=== PATIENT | male | born 1960 | race Caucasian/White ===

== ENCOUNTER 2017-02-08 18:10 | Observation (INO) | payer OTHER ==
[~2017-02-08] VITALS: Ht 185.4 cm; Wt 150.0 kg
[~2017-02-08 18:10] MED LIST: ADVAI250I INH; ALBU8I INH; AMLO5 PO; BACT800T5 PO; CEPH500T PO; DUONI INH; FURO10S PO; LEVEMIR SQ; METO25 PO; NEBUMIS6 INH; SUBO8MIS SL; Z.0.OXYGENDME NC
[2017-02-08 18:12] VITALS: BP 142/80; PULSE 78; RESP 20; TEMP 98.2; O2SAT 98
--- NOTE | 2017-02-08 18:21 | PD ---
Physical Exam Date Seen by Provider: Feb 08, 2017 Time Seen by Provider: 18:14 Narrative 56 YOWM C/O NAUSEA AND DIFFICULTY SWALLOWING . SEEN BY PMD LAST WEEK GIVEN WATER PILL VSS. AWAITING BED PLACEMENT Data Data Last Documented VS Vital Signs Date Time Temp Pulse Resp B/P Pulse Ox O2 Delivery O2 Flow Rate FiO2 02/08/17 18:12 98.2 78 20 142/80 98 MDM Medical Record Reviewed: Yes Supervised Visit with SIS: Yes Daniel Torre Feb 08, 2017 18:21
[2017-02-08] MEDS ORDERED: SODIUM CHLOR 0.9% 1000 ML INJ 1,000 ML IV SCH (20:09)
[2017-02-08] MEDS ORDERED: ONDANSETRON HCL 4 MG/2 ML VIAL IVP ONE (20:15)
[2017-02-08] MEDS ORDERED: FENO160T PO (20:29)
[2017-02-08] MEDS ORDERED: GLIP10TA6 PO (20:29)
[2017-02-08] MEDS ORDERED: ALBUAER3 INH (20:29)
[2017-02-08] MEDS ORDERED: FURO20TA PO (20:29)
[2017-02-08] MEDS ORDERED: LEVEMIR SQ (20:29)
[2017-02-08] MEDS ORDERED: LISI-515 PO (20:29)
[2017-02-08] MEDS ORDERED: METH10TA PO (20:29)
[2017-02-08 20:44] LABS: AUTOMATED NEUTROPHIL # 9.1 TH/MM3 (1.8-7.7); BASOPHIL # 0.1 TH/MM3 (0-0.2); BASOPHIL % 0.4 % (0.0-2.0); EOSINOPHIL # 0.1 TH/MM3 (0-0.4); EOSINOPHIL % 0.8 % (0.0-4.0); HEMATOCRIT 45.4 % (39.0-51.0); HEMO FLAGS DIFF FINAL; LYMPH % 21.4 % (9.0-44.0); LYMPHOCYTE # 2.7 TH/MM3 (1.0-4.8); MEAN CELL VOLUME 83.5 FL (80.0-100.0); MEAN CORPUSCULAR HEMOGLOBIN 26.9 PG (27.0-34.0); MEAN CORPUSCULAR HGB CONC 32.2 % (32.0-36.0); MONO % 5.9 % (0.0-8.0); NEUT % 71.5 % (16.0-70.0); PLATELET COUNT 253 TH/MM3 (150-450); RED BLOOD COUNT 5.44 MIL/MM3 (4.50-5.90); RED CELL DISTRIBUTION WIDTH 15.6 % (11.6-17.2); WHITE BLOOD COUNT 12.7 TH/MM3 (4.0-11.0)
[2017-02-08 20:59] LABS: ANION GAP 10 MEQ/L (5-15); AST (GOT) 33 U/L (15-37); BICARBONATE 26.4 MEQ/L (21.0-32.0); BLOOD UREA NITROGEN 26 MG/DL (7-18); CHLORIDE 99 MEQ/L (98-107); GLOMERULAR FILTRATION RATE 51 ML/MIN (>89); POTASSIUM 4.5 MEQ/L (3.5-5.1); SODIUM (NA) 135 MEQ/L (136-145)
[2017-02-08 21:02] LABS: ALKALINE PHOSPHATASE 71 U/L (45-117); ALT (GPT) 34 U/L (12-78); TOTAL BILIRUBIN ADULT 0.5 MG/DL (0.2-1.0)
--- NOTE | 2017-02-08 21:21 | PD ---
HPI Chief Complaint: GI Complaint Time Seen by Provider: 21:17 Travel History International Travel<30 days: No Contact w/Intl Traveler<30days: No Traveled to known affect area: No History of Present Illness HPI 56-year-old male that presents to the ED for evaluation of inability to eat and drink for the past 5 days. Per patient although symptoms started on Tuesday. Per patient she's not been able to eat solids as he feels like it gets stuck and wants to come back up. Per patient she's also been having issues with liquids for the past couple of days. Per patient he seems to be progressively getting worse. He states that he has like a pressure pain in his epigastric area. Per patient he has never had anything like this before. He does mention to me that he went to see his doctor on before symptoms started and he was prescribed a new prescription for Lasix for swelling on the lower legs. The patient she's not sure if this is related to that. He denies any shortness of breath. Denies any history of heart disease. He does have a history of obesity, diabetes and hypertension. He also has a history of chronic wounds to his legs for which she follows with primary care doctor. He states that the pain is 6 out of 10. Nothing seems to make it better or worse. Per patient she is able to keep some fluids down but he feels like they're agreeable to come back up. He states that he had normal bowel movement yesterday. No bleeding. No lower abdominal pain. No urinary or bowel movement issues. No fevers chills or sweats. No cough or runny nose. No history of obstructions in the past. PFSH Past Medical History Cancer: No Cardiovascular Problems: No High Cholesterol: No Congestive Heart Failure: No Cerebrovascular Accident: No Diabetes: Yes Patient Takes Glucophage: Yes Diminished Hearing: No Endocrine: Yes Genitourinary: No Immune Disorder: No Musculoskeletal: Yes Neurologic: No Psychiatric: No Reproductive: No Respiratory: No Immunizations Current: Yes Seizures: No Past Surgical History Other Surgery: Yes Social History Alcohol Use: No Tobacco Use: No Substance Use: No Allergies-Medications (Allergen,Severity, Reaction): Coded Allergies: Penicillin (Verified Allergy, Severe, Anaphylaxis, 02/08/17) Reported Meds & Prescriptions Reported Meds & Active Scripts Active Bactrim DS (Sulfamethoxazole-Trimethoprim) 800-160 Mg Tab 1 Tab PO BID Reported Proair Hfa 8.5 GM Inh (Albuterol Sulfate) 90 Mcg/Act Aer 2 Puff INH Q4-6H PRN 108 mcg/actuation Levemir Inj (Insulin Detemir) 1,000 unit/ 10 ML Vial 65 Units SQ HS Do not mix with any other Insulin. Lisinopril 20 Mg Tab 25 Mg PO DAILY Fenofibrate 160 Mg Tab 160 Mg PO DAILY Methadone (Methadone HCl) 10 Mg Tab 10 Mg PO DAILY Glipizide 10 Mg Tab 10 Mg PO BIDAC Take 30 minutes before a meal Furosemide 20 Mg Tab 20 Mg PO DAILY Review of Systems Except as stated in HPI: all other systems reviewed are Neg Physical Exam Narrative GENERAL: SKIN: Warm and dry. HEAD: Atraumatic. Normocephalic. EYES: Pupils equal and round 4 mm reactive to light and accommodation. No scleral icterus. No injection or drainage. ENT: No nasal bleeding or discharge. Mucous membranes pink and moist. Tongue is midline. No uvula deviation. NECK: Trachea midline. No JVD. CARDIOVASCULAR: Regular rate and rhythm. No murmurs, S3, S4. RESPIRATORY: No accessory muscle use. Clear to auscultation. Breath sounds equal bilaterally. GASTROINTESTINAL: Abdomen soft, non-tender, nondistended. Hepatic and splenic margins not palpable. MUSCULOSKELETAL: Extremities without clubbing, cyanosis, or edema. No obvious deformities. Full range of motion of the upper and lower extremities bilaterally. 2+ pulses bilaterally. NEUROLOGICAL: Awake and alert. No obvious cranial nerve deficits. Motor grossly within normal limits. Five out of 5 muscle strength in the arms and legs. Normal speech. PSYCHIATRIC: Appropriate mood and affect; insight and judgment normal. Data Data Last Documented VS Vital Signs Date Time Temp Pulse Resp B/P Pulse Ox O2 Delivery O2 Flow Rate FiO2 02/08/17 18:12 98.2 78 20 142/80 98 Orders Complete Blood Count With Diff (02/08/17 20:09) Comprehensive Metabolic Panel (02/08/17 20:09) Lipase (02/08/17 20:09) Lactic Acid (02/08/17 20:09) Urinalysis - C+S If Indicated (02/08/17 20:09) Ct Abd/Pel W Iv Contrast(Rout) (02/08/17 20:09) Iv Access Insert/Monitor (02/08/17 20:09) Ondansetron Inj (Zofran Inj) (02/08/17 20:15) Sodium Chlor 0.9% 1000 Ml Inj (Ns 1000 M (02/08/17 20:09) Barium Swallow (02/08/17 ) Electrocardiogram (02/08/17 ) Troponin I (02/08/17 21:16) Famotidine Inj (Pepcid Inj) (02/08/17 21:30) Iohexol 350 Inj (Omnipaque 350 Inj) (02/08/17 22:35) Labs Laboratory Tests Test 02/08/17 20:20 White Blood Count 12.7 TH/MM3 Red Blood Count 5.44 MIL/MM3 Hemoglobin 14.6 GM/DL Hematocrit 45.4 % Mean Corpuscular Volume 83.5 FL Mean Corpuscular Hemoglobin 26.9 PG Mean Corpuscular Hemoglobin 32.2 % Concent Red Cell Distribution Width 15.6 % Platelet Count 253 TH/MM3 Mean Platelet Volume 8.5 FL Neutrophils (%) (Auto) 71.5 % Lymphocytes (%) (Auto) 21.4 % Monocytes (%) (Auto) 5.9 % Eosinophils (%) (Auto) 0.8 % Basophils (%) (Auto) 0.4 % Neutrophils # (Auto) 9.1 TH/MM3 Lymphocytes # (Auto) 2.7 TH/MM3 Monocytes # (Auto) 0.7 TH/MM3 Eosinophils # (Auto) 0.1 TH/MM3 Basophils # (Auto) 0.1 TH/MM3 CBC Comment DIFF FINAL Differential Comment Sodium Level 135 MEQ/L Potassium Level 4.5 MEQ/L Chloride Level 99 MEQ/L Carbon Dioxide Level 26.4 MEQ/L Anion Gap 10 MEQ/L Blood Urea Nitrogen 26 MG/DL Creatinine 1.45 MG/DL Estimat Glomerular Filtration 51 ML/MIN Rate Random Glucose 182 MG/DL Lactic Acid Level 1.4 mmol/L Calcium Level 9.5 MG/DL Total Bilirubin 0.5 MG/DL Aspartate Amino Transf 33 U/L (AST/SGOT) Alanine Aminotransferase 34 U/L (ALT/SGPT) Alkaline Phosphatase 71 U/L Troponin I LESS THAN 0.02 NG/ML Total Protein 8.5 GM/DL Albumin 3.7 GM/DL Lipase 393 U/L [facility] Medical Decision Making Medical Screen Exam Complete: Yes Emergency Medical Condition: Yes Medical Record Reviewed: Yes Interpretation(s) CBC & BMP Diagram 02/08/17 20:20 LFTs and lipase WNL Differential Diagnosis Epigastric pain versus GERD versus obstruction versus esophagitis versus stricture versus cardiac chest pain versus ACS Narrative Course 56-year-old male that presents to the ED for evaluation of inability to swallow. Patient was properly examined and was found to have signs and symptoms which appear to be consistent with dysphagia versus obstruction versus epigastric pain. At this time I recommend labs and imaging. Patient is agreeable plan. Patient was started on IV fluids. Given Pepcid. Labs and imaging still pending. Case signed out to my attending pending imaging results. Imtiaz Rios Feb 08, 2017 21:21
--- NOTE | 2017-02-08 21:26 | RADRPT ---
EXAM DATE/TIME: 02/08/2017 20:34 [facility] COMPARISON: No previous studies available for comparison. INDICATIONS : Dysphagia. FLUORO TIME: 0.5 minutes IMAGE COUNT: 9 CONTRAST: 1. Liquid E-Z Paque Barium Sulfate (60% w/v, 41% w.w) MEDICAL HISTORY : Hypertension. Chronic obstructive pulmonary disease. SURGICAL HISTORY : Lumbar fusion. ENCOUNTER: Initial ACUITY: 4 - 6 days PAIN SCORE: 0/10 LOCATION: esophagus. FINDINGS: Examination was performed in a semierect position with the patient drinking thin barium. The patient was unable to turn for lateral projection and the examination was performed only in the frontal view . The patient initiates swallowing normally. There is rapid transit of the barium through the esoph mar. Esophageal contour and diameter is normal. No evidence of ulceration or mass. CONCLUSION: Negative barium swallow. No evidence of obstruction, aspiration, or ulceration. Gary Smalls MD on February 08, 2017 at 21:23 Board Certified Radiologist. This report was verified electronically.
[2017-02-08] MEDS: FAMOTIDINE 20 MG/2 ML VIAL IV PUSH SCH (21:49)
[2017-02-08] MEDS ORDERED: IOHEXOL 350 MG/ML 10 ML VIAL (for RAD DIAG) IV ONE (22:35)
[2017-02-08 22:47] VITALS: BP 158/95; PULSE 85; RESP 18; O2SAT 97
--- NOTE | 2017-02-08 23:09 | RADRPT ---
EXAM DATE/TIME: 02/08/2017 22:33 [facility] COMPARISON: No previous studies available for comparison. INDICATIONS : Nausea and difficulty swallowing. IV CONTRAST: 100 cc Omnipaque 350 (iohexol) IV ORAL CONTRAST: No oral contrast ingested. RADIATION DOSE: 34.37 CTDIvol (mGy) MEDICAL HISTORY : Hypertension. Chronic obstructive pulmonary disease. Deep venous thrombosis. SURGICAL HISTORY : Lumbar surgery. ENCOUNTER: Initial ACUITY: 1 day PAIN SCALE: 5/10 LOCATION: Bilateral lower quadrant TECHNIQUE: Volumetric scanning of the abdomen and pelvis was performed. Using automated exposure control and ad justment of the mA and/or kV according to patient size, radiation dose was kept as low as reasonably achievable to obtain optimal diagnostic quality images. FINDINGS: Streak artifact from the barium relating to the patient's barium swallow. LOWER LUNGS: The visualized lower lungs are clear. LIVER: Homogeneous low density without lesion. There is no dilation of the biliary tree. No calcified gall stones. SPLEEN: Normal size without lesion. PANCREAS: Within normal limits. KIDNEYS: Normal in size and shape. There is no mass or hydronephrosis. 1 mm nonobstructing right renal stone. ADRENAL GLANDS: Within normal limits. VASCULAR: There is no aortic aneurysm. BOWEL/MESENTERY: Barium within the small bowel generates streak artifact. The remaining bowel loops are normal in jax jeff. No free air or free fluid. ABDOMINAL WALL: Small umbilical hernia containing fat. RETROPERITONEUM: There is no lymphadenopathy. BLADDER: No wall thickening or mass. REPRODUCTIVE: Within normal limits. INGUINAL: There is no lymphadenopathy or hernia. MUSCULOSKELETAL: Postsurgical changes involving a degenerative lumbar spine. CONCLUSION: 1. No acute abnormality. 2. Hepatic steatosis. 3. 1 mm nonobstructing right renal stone. Gary Hartman Jr., MD on February 08, 2017 at 23:03 Board Certified Radiologist. This report was verified electronically.
[2017-02-09] VITALS (7 sets, daily range): BP systolic 127–172; BP diastolic 68–90; PULSE 79–90; RESP 16–20; TEMP 96.3–98.7; O2SAT 95–98
[2017-02-09] MEDS ORDERED: METOCLOPRAMIDE INJ 10 MG in SODIUM CHLORIDE 0.9% INJ 50 ML IV ONE (00:15)
--- NOTE | 2017-02-09 02:05 | PD ---
Physical Exam Narrative I, Dr. Humphrey, have reviewed the advance practice practitioner's documentation and am in agreement, met with the patient face to face, made the diagnosis, and the medical decision making was done by me. *My assessment and Findings: Patient is a 56 year old male who comes in because he says he is unable to swallow solids and is vomiting liquids. Patient has history of uncontrolled sugars. Exam shows patient is uncomfortable, unable to drink fluids. No abdominal tenderness. Data Data Last Documented VS Vital Signs Date Time Temp Pulse Resp B/P Pulse Ox O2 Delivery O2 Flow Rate FiO2 02/08/17 22:47 85 18 158/95 97 Room Air 02/08/17 18:12 98.2 Orders Complete Blood Count With Diff (02/08/17 20:09) Comprehensive Metabolic Panel (02/08/17 20:09) Lipase (02/08/17 20:09) Lactic Acid (02/08/17 20:09) Urinalysis - C+S If Indicated (02/08/17 20:09) Ct Abd/Pel W Iv Contrast(Rout) (02/08/17 20:09) Iv Access Insert/Monitor (02/08/17 20:09) Ondansetron Inj (Zofran Inj) (02/08/17 20:15) Sodium Chlor 0.9% 1000 Ml Inj (Ns 1000 M (02/08/17 20:09) Barium Swallow (02/08/17 ) Electrocardiogram (02/08/17 ) Troponin I (02/08/17 21:16) Famotidine Inj (Pepcid Inj) (02/08/17 21:30) Iohexol 350 Inj (Omnipaque 350 Inj) (02/08/17 22:35) Metoclopramide Inj (Reglan Inj) (02/09/17 00:15) Admit Order (Ed Use Only) (02/09/17 ) Labs Laboratory Tests Test 02/08/17 02/09/17 20:20 00:13 White Blood Count 12.7 TH/MM3 Red Blood Count 5.44 MIL/MM3 Hemoglobin 14.6 GM/DL Hematocrit 45.4 % Mean Corpuscular Volume 83.5 FL Mean Corpuscular Hemoglobin 26.9 PG Mean Corpuscular Hemoglobin 32.2 % Concent Red Cell Distribution Width 15.6 % Platelet Count 253 TH/MM3 Mean Platelet Volume 8.5 FL Neutrophils (%) (Auto) 71.5 % Lymphocytes (%) (Auto) 21.4 % Monocytes (%) (Auto) 5.9 % Eosinophils (%) (Auto) 0.8 % Basophils (%) (Auto) 0.4 % Neutrophils # (Auto) 9.1 TH/MM3 Lymphocytes # (Auto) 2.7 TH/MM3 Monocytes # (Auto) 0.7 TH/MM3 Eosinophils # (Auto) 0.1 TH/MM3 Basophils # (Auto) 0.1 TH/MM3 CBC Comment DIFF FINAL Differential Comment Sodium Level 135 MEQ/L Potassium Level 4.5 MEQ/L Chloride Level 99 MEQ/L Carbon Dioxide Level 26.4 MEQ/L Anion Gap 10 MEQ/L Blood Urea Nitrogen 26 MG/DL Creatinine 1.45 MG/DL Estimat Glomerular Filtration 51 ML/MIN Rate Random Glucose 182 MG/DL Lactic Acid Level 1.4 mmol/L Calcium Level 9.5 MG/DL Total Bilirubin 0.5 MG/DL Aspartate Amino Transf 33 U/L (AST/SGOT) Alanine Aminotransferase 34 U/L (ALT/SGPT) Alkaline Phosphatase 71 U/L Troponin I LESS THAN 0.02 NG/ML Total Protein 8.5 GM/DL Albumin 3.7 GM/DL Lipase 393 U/L Urine Color YELLOW Urine Turbidity CLEAR Urine pH 5.5 Urine Specific [place] 1.033 Urine Protein NEG mg/dL Urine Glucose (UA) TRACE mg/dL Urine Ketones NEG mg/dL Urine Occult Blood NEG Urine Nitrite NEG Urine Bilirubin NEG Urine Urobilinogen LESS THAN 2.0 MG/DL Urine Leukocyte Esterase NEG Urine RBC 1 /hpf Urine WBC 1 /hpf Urine Hyaline Casts 1 /lpf Urine Mucus FEW /lpf Microscopic Urinalysis Comment CULT NOT INDICATED MDM Supervised Visit with SIS: Yes Narrative Course Labs sent show glucose of 182. CT abdomen and pelvis shows no acute abnormalities. Barium swallow is normal. Patient given Zofran and Reglan, still unable to drink fluids. Will place in observation for further management. Diagnosis Primary Impression: Vomiting Qualified Code: R11.2 - Intractable vomiting with nausea, unspecified vomiting type Admitting Information Admitting Physician Requests: Observation Amanda Humphrey MD Feb 09, 2017 02:04
[2017-02-09] MEDS ORDERED: ACETAMINOPHEN 325 MG TAB PO PRN (02:30)
[2017-02-09] MEDS ORDERED: GLUCAGON 1 MG/ML VIAL OTHER PRN (02:30)
[2017-02-09] MEDS ORDERED: DEXTROSE 50% IN WATER 50 ML VIAL(D50) IV PUSH PRN (02:30)
[2017-02-09] MEDS ORDERED: NALOXONE HCL 0.4 MG/ML AMP IV PRN (02:30)
[2017-02-09] MEDS ORDERED: SENNOSIDES 8.6 MG TAB PO PRN (02:30)
[2017-02-09] MEDS ORDERED: SODIUM CHLORIDE 0.9% FLUSH 10 ML FLUSH IV FLUSH PRN (02:30)
[2017-02-09 02:31] LABS: BLOOD, URINE NEG (NEG); COMMENT (UR) CULT NOT INDICATED; CULTURE IF INDICATED CULT NOT INDICATED; GLUCOSE,URINE TRACE mg/dL (NEG); HYALINE CAST, URINE 1 /lpf (RARE); KETONE, URINE NEG (NEG); MUCUS URINE FEW /lpf (OCC); NITRITE,URINE NEG (NEG); PH, URINE 5.5 (5.0-8.5); URINE COLOR YELLOW (YELLW/STRAW)
[2017-02-09] MEDS: SODIUM CHLOR 0.9% 1000 ML INJ 1,000 ML IV SCH ×3 (03:08→21:30)
[2017-02-09] MEDS: HEPARIN SODIUM - SQ 10,000 UNITS/ML VIAL SQ SCH ×2 (04:42→17:33)
[2017-02-09] MEDS: ONDANSETRON HCL 4 MG/2 ML VIAL IVP PRN ×2 (04:53→17:35)
[2017-02-09] MEDS: INSULIN ASPART SUPPLEMENTAL SCALE SQ SCH ×4 (06:18→21:35)
--- NOTE | 2017-02-09 09:16 | EKG ---
Date Performed: 02/08/2017 Time Performed: 21:45:17 PTAGE: 56 years EKG: Sinus rhythm PATTERN CONSISTENT WITH PULMONARY DISEASE INFERIOR MYOCARDIAL INFARCTION ABNORMAL ECG NO PREVIOUS TRACING DOCTOR: Oren Xiao Interpretating Date/Time 02/09/2017 09:14:39
[2017-02-09] MEDS: SODIUM CHLORIDE 0.9% FLUSH 10 ML FLUSH IV FLUSH SCH ×2 (09:30→21:29)
[2017-02-09] MEDS: FAMOTIDINE 20 MG/2 ML VIAL IV PUSH SCH ×2 (09:30→21:29)
--- NOTE | 2017-02-09 09:49 | MH ---
cc: JENNIFER IZQUIERDO MD DATE OF ADMISSION: 02/09/2017 DATE OF : 1960 CHIEF COMPLAINT GI distress. Travel in the last 30 days: None. HISTORY OF PRESENT ILLNESS This is a pleasant morbidly obese 56-year-old white male who has come to the ER with struggles to eat and drink in the past five days. The patient was in his usual state of health until five days ago. When he attempts to eat solid foods or even liquids he feels that they get stuck and want to come back up. He is usually not vomiting up chewed or regular food. He describes a phlegm and increased saliva that he is spitting up almost continuously. He states that he eats his last meal approximately 9:00 p.m. at night. He states that he does not lay flat normally to sleep but continues to struggle with the foods and liquid feeling like they are not going down into his stomach. He does state on occasions the food appears to be stuck in his mid to lower esophagus and then all of a sudden he will feel a release to the food and liquids going through. He denies any chest pain, no shortness of breath. He does struggle with diabetes and venous insufficiency. He does have a chronic wound which is bandaged on his right lower leg. He does see the wound care clinic as well as daily bandages on this wound. The patient does note chronic pain but also has acute pain during his episodes of attempting to eat. The patient states no BM in the past 4-5 days, but according to the record he did note a BM yesterday which was normal. The patient is alert, oriented, fairly good historian. Does appear to have some mild anxiety related to this current issue. The patient had a barium swallow while in the emergency room which was negative, it showed no evidence of obstruction, aspiration or ulceration. PAST MEDICAL HISTORY 1. Diabetes, insulin dependent. 2. Morbid obesity. 3. Arthritis. 4. Degenerative disc disease. 5. Chronic back pain. 6. Tobacco abuse. 7. Chronic leg wounds. 8. Venous insufficiency. 9. Hypertension. PAST SURGICAL HISTORY Back surgeries x 5. ALLERGIES PENICILLIN. MEDICATIONS 1. Pro-Air. 2. Levemir insulin. 3. Lisinopril. 4. Fenofibrate. 5. Methadone. 6. Glipizide. 7. Lasix. SOCIAL HISTORY The patient is single, currently lives in his own home. He does admit to approximately half-pack of cigarettes a day since the age of 15. No alcohol, no illicit drugs. FAMILY HISTORY Diabetes, cancer and hypertension. REVIEW OF SYSTEMS A 12-point review was obtained, positives mentioned in the HPI related to his GI distress of food and liquids becoming stuck in his esophagus, mild anxiety, lower extremity wounds, otherwise systems are negative or unremarkable. PHYSICAL EXAMINATION VITAL SIGNS: Temperature 98.4, pulse 83, respirations 16-20, blood pressure 146/77. 02 sat 95, currently on room air. GENERAL: Morbidly obese white male, looks to be his stated age, alert, oriented, resting on the bed, head of bed elevated approximately 60 degrees. SKIN: Rosalie, warm and dry. Foot abrasions. EXTREMITIES: Bilateral lower extremities with thin turgor, darker skin from decreased venous return and wound that is on the right lower leg, covered with a dressing, clean, dry and intact. HEENT: Atraumatic, normocephalic. PERRLA. Mucous membranes are pink and moist. NECK: Thick, obese, supple. HEART: Heart sounds distant, S1, S2. No audible murmurs, rubs or gallops. 3+ chronic edema in his lower extremities. PULMONARY: Essentially clear anteriorly and posteriorly with no wheezes, rales or rhonchi. He does have some mild diminished sounds in his bases. ABDOMEN: Obese, round, soft, nontender, nondistended. Active bowel sounds. MUSCULOSKELETAL: Moves his extremities with purpose. Wounds are noted in the skin assessment. NEUROLOGIC: Alert, oriented, good historian. PSYCHIATRY: Appropriate mood and affect. Mild anxiety related to current condition. DIAGNOSTIC DATA WBC count 12.7, RBC 5.44, hemoglobin 14.6, hematocrit 45.4. MCH 26.9, platelet count 253. Other abnormals are neutrophil auto count percentage 71.5. Chemistry sodium 135, potassium 4.5, chloride 99, carbon dioxide 26.4, amnion gap 10, BUN 26, creatinine 1.45. GFR 51, random glucose 182, lactic acid 1.4. Troponin is less than 0.02. Total protein 8.5, albumin 3.7, lipase 393. Urine is yellow, clear, PH 5.5, specific gravity 1.033, negative protein, trace glucose, negative ketones, occult blood, nitrites, bilirubin, and leukocyte esterase. A few urine mucous. Barium swallow: Negative exam, no evidence of obstruction, aspiration or ulceration. Abdomen/pelvic CT: No abnormalities, hepatic steatosis, 1 mm of nonobstructing right renal stone. ASSESSMENT AND PLAN We are placing this patient in observation. GERD, possible esophagitis, possible hiatal hernia, leukocytosis, chronic venous hypertension with insufficiency with leg ulcerations, diabetes type II uncontrolled, morbid obesity, hypertension, foot abrasions, tobacco abuse, probable COPD. Our plan is to place him on 1800 calorie ADA diet, vital signs q. 4 and more often if appropriate. In the emergency room the patient did receive gentle hydration. Monitoring of his labs, Pepcid IV q. 12 hours, he also received a dose of Reglan IV one time. 02 per nasal cannula if warranted. DVT prophylaxis with heparin subcu. Accu-Cheks a.c. and h.s. with sliding scale insulin. Reconcile his medications which will include his chronic pain management. GI consult for their expert opinion. The patient will probably require more testing with possible EGD. Will consult wound care for their expert opinion to assist with his lower extremity wounds which do appear to be chronic. Bowel regime with p.o. meds and p.r.n. meds if needed. Will maintain him on IV Pepcid q. 12 for now. The patient's symptoms do appear to be more consistent with dysphagia, possible obstruction with hiatal hernia. The patient is full code, full aggressive care and we will follow. Dictated by: Kya Martinez, Nurse Practitioner Jennifer Izquierdo MD JP/DOMENICO /8:15 AM 8:46 AM PT SEEN AND EXAMINED THIS AM FACE TO FACE TO TIME SPENT WITH PT CHART WAS REVIEWED INCLUDING LABS MEDS AND RAD DATA PLAN OF CARE WAS CAMILA HERNANDEZP IN DETAIL ABOVE DW PT IN DETAIL CAMILA RN ON FLOOR MTDD
[2017-02-09] MEDS ORDERED: METHADONE HCL 10 MG TAB PO SCH (10:58)
[2017-02-09] MEDS ORDERED: ALBUTEROL SULFATE 90 MCG/ACT HFA 8 GM INHALER INH PRN (12:30)
[2017-02-09] MEDS ORDERED: PILL SPLITTER OTHER PRN (13:00)
[2017-02-09] MEDS: FUROSEMIDE 20 MG TAB PO SCH (13:08)
--- NOTE | 2017-02-09 13:46 | PD.CONS ---
HPI History of Present Illness This is a 56 year old [gentleman] who 6 days ago began having nausea and vomiting. Onset was sudden. No abdominal pain, fever, or diarrhea. No blood in emesis. Prior to that for 2-3 months he was having the feeling that food gets stuck on his esophagus after eating, and needing to drink sips of warm water to help it down. He does have diabetes for which he takes insulin. Denies hx reflux, constipation. Never had EGD. (Marci Ratliff) PFSH Past Medical History IDDM HTN Obesity Past Surgical History Back surgeries x 5 (Marci Ratliff) Coded Allergies: Penicillin (Verified Allergy, Severe, Anaphylaxis, 02/08/17) Medications Current Medications Medications (Trade) Dose Ordered Sig/Carie Route PRN Reason Start Time Stop Time Status Last Admin Dose Admin Famotidine 10 mg 10 mg Q12H IV PUSH 02/08/17 21:30 02/09/17 09:30 Sodium Chloride (NS 1000 ml Inj) 1,000 ml @ 100 mls/hr Q10H IV 02/09/17 02:22 02/09/17 13:08 Sodium Chloride (NS Flush) 2 ml UNSCH PRN IV FLUSH FLUSH AFTER USING IV ACCESS 02/09/17 02:30 Sodium Chloride (NS Flush) 2 ml BID IV FLUSH 02/09/17 09:00 02/09/17 09:30 Acetaminophen (Tylenol) 650 mg Q4H PRN PO TEMP > 100.4 02/09/17 02:30 Ondansetron HCl (Zofran Inj) 4 mg Q6H PRN IVP NAUSEA OR VOMITING 02/09/17 02:30 02/09/17 04:53 Sennosides (Senokot) 17.2 mg Q12H PRN PO CONSTIPATION 02/09/17 02:30 Heparin Sodium (Porcine) (Heparin Inj) 5,000 units Q12H SQ 02/09/17 04:00 02/09/17 04:42 Naloxone HCl (Narcan Inj) 0.4 mg UNSCH PRN IV SEE LABEL COMMENTS 02/09/17 02:30 Dextrose (D50w (Vial) Inj) 25 ml UNSCH PRN IV PUSH HYPOGLYCEMIA-SEE COMMENTS 02/09/17 02:30 Glucagon (Glucagon Inj) 1 mg UNSCH PRN OTHER HYPOGLYCEMIA-SEE COMMENTS 02/09/17 02:30 Methadone HCl (Dolophine) 20 mg DAILY PO 02/09/17 10:58 02/09/17 11:23 Furosemide (Lasix) 20 mg DAILY PO 02/09/17 13:00 02/09/17 13:08 Glipizide (Glucotrol) 10 mg BIDAC PO 02/09/17 16:00 Lisinopril (Prinivil) 25 mg DAILY PO 02/10/17 09:00 Fenofibrate (Tricor) 145 mg DAILY PO 02/10/17 09:00 Miscellaneous (Pill Splitter) 1 ea UNSCH PRN OTHER SEE LABEL COMMENTS 02/09/17 13:00 Family History No family hx colon or gastric cancer Social History smokes 1/2 ppd. No ETOH (Marci Ratliff) Review of Systems Constitutional: DENIES: Fever, Weight loss Eyes: DENIES: Blurred vision Ears, nose, mouth, throat: DENIES: Hearing loss Respiratory: DENIES: Wheezing Cardiovascular: COMPLAINS OF: Lower Extremity Edema, DENIES: Chest pain Gastrointestinal: COMPLAINS OF: Nausea, Vomiting, Difficulty Swallowing, DENIES: Abdominal pain, Black stools, Bloody stools, Constipation, Diarrhea, Heartburn, Hematemesis Musculoskeletal: DENIES: Joint Swelling Integumentary: DENIES: Rash, Jaundice Hematologic/lymphatic: DENIES: Bruising (Marci Ratliff) GI Exam Vitals I&O Vital Signs Date Time Temp Pulse Resp B/P Pulse Ox O2 Delivery O2 Flow Rate FiO2 02/09/17 11:58 98.0 82 18 137/75 95 02/09/17 07:22 98.2 83 16 146/77 95 02/09/17 04:27 98.6 90 20 145/79 98 02/09/17 03:03 80 16 172/90 97 Room Air 02/08/17 22:47 85 18 158/95 97 Room Air 02/08/17 18:12 98.2 78 20 142/80 98 Imaging Last Impressions Abdomen/Pelvis CT 02/08/172008 Signed Impressions: Service Date/Time: Wednesday, February 08, 2017 22:33 - CONCLUSION: 1. No acute abnormality. 2. Hepatic steatosis. 3. 1 mm nonobstructing right renal stone. Gary Hartman Jr., MD Barium Swallow X-Ray 02/08/17 0000 Signed Impressions: Service Date/Time: Wednesday, February 08, 2017 20:34 - CONCLUSION: Negative barium swallow. No evidence of obstruction, aspiration, or ulceration. Gary Smalls MD Laboratory Test 02/08/17 02/09/17 20:20 00:13 White Blood Count 12.7 TH/MM3 Red Blood Count 5.44 MIL/MM3 Hemoglobin 14.6 GM/DL Hematocrit 45.4 % Mean Corpuscular Volume 83.5 FL Mean Corpuscular Hemoglobin 26.9 PG Mean Corpuscular Hemoglobin 32.2 % Concent Red Cell Distribution Width 15.6 % Platelet Count 253 TH/MM3 Mean Platelet Volume 8.5 FL Neutrophils (%) (Auto) 71.5 % Lymphocytes (%) (Auto) 21.4 % Monocytes (%) (Auto) 5.9 % Eosinophils (%) (Auto) 0.8 % Basophils (%) (Auto) 0.4 % Neutrophils # (Auto) 9.1 TH/MM3 Lymphocytes # (Auto) 2.7 TH/MM3 Monocytes # (Auto) 0.7 TH/MM3 Eosinophils # (Auto) 0.1 TH/MM3 Basophils # (Auto) 0.1 TH/MM3 CBC Comment DIFF FINAL Differential Comment Sodium Level 135 MEQ/L Potassium Level 4.5 MEQ/L Chloride Level 99 MEQ/L Carbon Dioxide Level 26.4 MEQ/L Anion Gap 10 MEQ/L Blood Urea Nitrogen 26 MG/DL Creatinine 1.45 MG/DL Estimat Glomerular Filtration 51 ML/MIN Rate Random Glucose 182 MG/DL Lactic Acid Level 1.4 mmol/L Calcium Level 9.5 MG/DL Total Bilirubin 0.5 MG/DL Aspartate Amino Transf 33 U/L (AST/SGOT) Alanine Aminotransferase 34 U/L (ALT/SGPT) Alkaline Phosphatase 71 U/L Troponin I LESS THAN 0.02 NG/ML Total Protein 8.5 GM/DL Albumin 3.7 GM/DL Lipase 393 U/L Urine Color YELLOW Urine Turbidity CLEAR Urine pH 5.5 Urine Specific Ubly 1.033 Urine Protein NEG mg/dL Urine Glucose (UA) TRACE mg/dL Urine Ketones NEG mg/dL Urine Occult Blood NEG Urine Nitrite NEG Urine Bilirubin NEG Urine Urobilinogen LESS THAN 2.0 MG/DL Urine Leukocyte Esterase NEG Urine RBC 1 /hpf Urine WBC 1 /hpf Urine Hyaline Casts 1 /lpf Urine Mucus FEW /lpf Microscopic Urinalysis Comment CULT NOT INDICATED Physical Examination HEENT: EOMI; normocephalic; atraumatic; no jaundice. NECK: Neck is supple, no JVD CHEST: Chest is clear to auscultation and percussion. CARDIAC: Regular rate and rhythm with no murmur gallop or rubs. ABDOMEN: Soft, obese, nontender; bowel sounds are present in all four quadrants. EXTREMITIES: No clubbing, cyanosis. BLE red, edematous, weeping ulcers, left elbow abrasion. SKIN: Normal; no rash; no jaundice. 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 (Marci Ratliff) Assessment and Plan Plan ASSESSMENT: - nausea and vomiting. Hx diabetes, possible gastroparesis. Will do EGD and if neg GES. PLAN: - EGD in am - obtain consents - NPO after midnight - hold heparin tomorrow morning - await results of above This pt was seen by myself an Dr. Wang and this note is written on his behalf. (Marci Ratliff) Physician Comments Seen and examined with [employer], ct, ugi -ve for source of symptoms. EGD planned for tomorrow, if normal consider GES. Thank you (Anastacio Wang MD) Marci Ratliff Feb 09, 2017 13:45 Anastacio Wang MD Feb 09, 2017 18:45
[2017-02-09] MEDS ORDERED: METH10TA PO (17:26)
[2017-02-09] MEDS ORDERED: METHADONE HCL 10 MG TAB PO ONE (17:30)
[2017-02-09] MEDS: glipiZIDE 10 MG TAB PO SCH (17:33)
[2017-02-09] MEDS ORDERED: METOCLOPRAMIDE HCL 10 MG/2 ML VIAL IV PUSH ONE (22:45)
[2017-02-09] MEDS ORDERED: SCOPOLAMINE 1.5 MG PATCH T-DERMAL PRN (23:00)
[2017-02-10 05:11] LABS: AUTOMATED NEUTROPHIL # 6.9 TH/MM3 (1.8-7.7); BASOPHIL # 0.1 TH/MM3 (0-0.2); BASOPHIL % 0.7 % (0.0-2.0); EOSINOPHIL # 0.2 TH/MM3 (0-0.4); EOSINOPHIL % 1.7 % (0.0-4.0); HEMATOCRIT 40.5 % (39.0-51.0); HEMO FLAGS DIFF FINAL; LYMPH % 25.8 % (9.0-44.0); LYMPHOCYTE # 2.7 TH/MM3 (1.0-4.8); MEAN CELL VOLUME 84.3 FL (80.0-100.0); MEAN CORPUSCULAR HEMOGLOBIN 27.6 PG (27.0-34.0); MEAN CORPUSCULAR HGB CONC 32.7 % (32.0-36.0); MONO % 6.4 % (0.0-8.0); NEUT % 65.4 % (16.0-70.0); PLATELET COUNT 220 TH/MM3 (150-450); RED CELL DISTRIBUTION WIDTH 15.6 % (11.6-17.2); WHITE BLOOD COUNT 10.6 TH/MM3 (4.0-11.0)
[2017-02-10 05:16] VITALS: BP 129/70; PULSE 72; RESP 20; TEMP 98.5; O2SAT 97
[2017-02-10 05:41] LABS: BICARBONATE 27.4 MEQ/L (21.0-32.0); POTASSIUM 4.2 MEQ/L (3.5-5.1)
[2017-02-10] MEDS: glipiZIDE 10 MG TAB PO SCH ×2 (06:03→18:09)
[2017-02-10] MEDS: INSULIN ASPART SUPPLEMENTAL SCALE SQ SCH ×4 (06:18→21:25)
[2017-02-10 08:00] VITALS: BP 149/78; PULSE 68; RESP 16; TEMP 97.9; O2SAT 97
--- NOTE | 2017-02-10 08:07 | HHI.PR ---
Subjective Subjective Remarks c/o nausea has not vomited no abd. pain wants to drink something no cp no sob no acute changes overnight Review of Systems Constitutional Constitutional Remarks 12 point ROS completed, negative except as noted above Vitals/Results Intake & Output 02/09/17 02/09/17 02/10/17 15:00 23:00 07:00 Intake Total 1680 ml Output Total 1175 ml Balance 505 ml Intake Oral 480 ml IV Total 1200 ml Output Urine Total 1175 ml Vital Signs Vital Signs Date Time Temp Pulse Resp B/P Pulse Ox O2 Delivery O2 Flow Rate FiO2 02/10/17 05:16 98.5 72 20 129/70 97 02/09/17 23:50 98.7 79 18 127/68 98 02/09/17 19:06 96.3 89 20 132/86 97 02/09/17 15:44 98.1 82 16 148/81 95 02/09/17 11:58 98.0 82 18 137/75 95 CBC/BMP: 02/10/17 0431 02/10/17 0431 Lab Results Laboratory Tests Test 02/10/17 04:31 White Blood Count 10.6 TH/MM3 Red Blood Count 4.80 MIL/MM3 Hemoglobin 13.2 GM/DL Hematocrit 40.5 % Mean Corpuscular Volume 84.3 FL Mean Corpuscular Hemoglobin 27.6 PG Mean Corpuscular Hemoglobin 32.7 % Concent Red Cell Distribution Width 15.6 % Platelet Count 220 TH/MM3 Mean Platelet Volume 9.1 FL Neutrophils (%) (Auto) 65.4 % Lymphocytes (%) (Auto) 25.8 % Monocytes (%) (Auto) 6.4 % Eosinophils (%) (Auto) 1.7 % Basophils (%) (Auto) 0.7 % Neutrophils # (Auto) 6.9 TH/MM3 Lymphocytes # (Auto) 2.7 TH/MM3 Monocytes # (Auto) 0.7 TH/MM3 Eosinophils # (Auto) 0.2 TH/MM3 Basophils # (Auto) 0.1 TH/MM3 CBC Comment DIFF FINAL Differential Comment Sodium Level 140 MEQ/L Potassium Level 4.2 MEQ/L Chloride Level 103 MEQ/L Carbon Dioxide Level 27.4 MEQ/L Anion Gap 10 MEQ/L Blood Urea Nitrogen 21 MG/DL Creatinine 1.44 MG/DL Estimat Glomerular Filtration 51 ML/MIN Rate Random Glucose 81 MG/DL Calcium Level 8.9 MG/DL Physical Exam General General Appearance: Well Developed, Comfortable, Obese Eyes Eye Exam: Pupils Equal, Pupils Reactive Ears & Nose Ears & Nose Exam: Nasal Mucosa [place] Throat Throat Exam: Oral Mucosa [place] & Moist Neck Neck Exam: Neck Supple, Trachea Midline Pulmonary Resp Exam: Decreased Bases Cardiology CV Exam: Regular, Good Perfusion Gastrointestinal/Abdomen GI Exam: Soft, Non-Tender, Bowel Sounds Present, Non-Distended Musculoskeletal MS Exam: Joints Intact Integumentary Skin Exam: Warm, Dry Extremeties Extremities Exam: Pedal Pulses Palpable, Moderate Edema Extremeties Remarks chronic venous stasis dermatitis, ulcers Neurologic Neuro Exam: Alert, Awake, Oriented, Speech Clear, Moving All Extremities, No Focal Deficits Psychiatric Psych Exam: Appropriate Responses PUD Prophylasis PUD Remarks Pepcid Assessment/Plan Problem List: (1) Venous stasis dermatitis of both lower extremities (2) Diabetes 1.5, managed as type 2 (3) COPD mixed type (4) Hypertension (5) Obesity (6) CHF (congestive heart failure) (7) Nausea & vomiting (8) Chronic pain (9) Renal insufficiency Assessment/Plan continue IVF Pepcid IV antiemetics PRN Barium swallow, no obstruction CT abd. no significant findings appreciate GI input for EGD today Monitor renal function IVF NPO for now, then 1800 calorie ADA diet Accu-Cheks a.c. and h.s. with sliding scale insulin continue with chronic pain management meds monitor for fluid overload continue PO lasix Dec. IVF to 50/hr Pepcid for GI prophylaxis monitor labs poss. dc today or tomorrow after EGD and resolution of symptoms. D/W RN D/W attending D/W pt. This patient was seen by myself and attending, this note is written on their behalf. Problem Qualifiers (1) Hypertension: Qualified Code: I10 - Essential hypertension (2) Obesity: Qualified Code: E66.9 - Obesity, unspecified obesity severity, unspecified obesity type (3) CHF (congestive heart failure): Qualified Code: I50.9 - Chronic congestive heart failure, unspecified congestive heart failure type (4) Nausea & vomiting: Qualified Code: R11.2 - Non-intractable vomiting with nausea, unspecified vomiting type (5) Chronic pain: Qualified Code: G89.4 - Chronic pain syndrome [facility] Feb 10, 2017 08:07
[2017-02-10 08:17] VITALS: O2SAT 96
[2017-02-10] MEDS: SODIUM CHLORIDE 0.9% FLUSH 10 ML FLUSH IV FLUSH SCH ×2 (09:00→21:00)
[2017-02-10] MEDS ORDERED: PROPOFOL 200 MG/20 ML AMP IV ONE (10:50)
--- NOTE | 2017-02-10 10:56 | GIPROC ---
[facility] [address] [facility]. [facility], [address] EGD PROCEDURE REPORT EXAM DATE: 02/10/2017 PATIENT NAME: Oren Dunlap MR #: [id number] BIRTHDATE: 1960 ATTENDING: Anastacio Wang MD ORDER #: [id number] ENGINEER/CONDUCTOR: Andrea Luna and Blu Eastman STATUS: inpatient INDICATIONS: The patient is a 56 yr old male here for an EGD due to dyspepsia and vomiting PROCEDURE PERFORMED: EGD w/ biopsy MEDICATIONS: Per Anesthesia and None. TOPICAL ANESTHETIC: Cetacaine [place] CONSENT: The patient understands the risks and benefits of the procedure and understands that these risks include, but are not limited to: sedation, allergic reaction, infection, perforation and/or bleeding. Alternative means of evaluation and treatment include, among others: physical exam, x-rays, and/or surgical intervention. The patient elects to proceed with this endoscopic procedure. medical equipment was checked for proper function. Hand hygiene and appropriate measures for infection prevention was taken. After the risks, benefits and alternatives of the procedure were thoroughly explained, Informed consent was verified, confirmed and timeout was successfully executed by the treatment team. The patient was anesthetized with topical anesthesia and the Pentax EG-[id number] endoscope was introduced through the mouth and advanced to the second portion of the duodenum. Retroflexed views revealed no abnormalities The gastroscope was then slowly withdrawn and removed. STOMACH: There was erythematous moderate gastritis in the gastric body. A biopsy was performed using cold forceps. Sample sent for histology. A biopsy was performed using cold forceps. DUODENUM: Moderate duodenal inflammation was found in the duodenal bulb. ADVERSE EVENTS: There were no complications. IMPRESSIONS: 1. There was erythematous gastritis in the gastric body; biopsy was performed 2. Duodenal inflammation was found in the duodenal bulb 3. Retroflexed views revealed no abnormalities RECOMMENDATIONS: 1. Await biopsy results. Biopsy results will not be ready for 7-10 days. If you don't hear from us in two weeks, call our office for biopsy results. 2. Anti-reflux regimen 3. Continue PPI PATIENT CONDITION: stable DISPOSITION: Inpatient REPEAT EXAM: Return as needed for EGD pending biopsy results Anastacio Wang MD eSigned: Anastacio Wang MD 02/10/2017 10:56 AM cc: PATIENT NAME: Oren Dunlap MR#: [id number]
[2017-02-10] MEDS ORDERED: DO NOT ADM ANY ANTICOAGULANT DRUGS PRN (11:45)
[2017-02-10 12:00] VITALS: BP 142/78; PULSE 79; RESP 16; TEMP 96.5; O2SAT 99
[2017-02-10] MEDS: SODIUM CHLOR 0.9% 1000 ML INJ 1,000 ML IV SCH (12:02)
[2017-02-10] MEDS: FENOFIBRATE 145 MG TAB PO SCH (12:02)
[2017-02-10] MEDS: LISINOPRIL 20 MG TAB PO SCH (12:03)
[2017-02-10] MEDS: FAMOTIDINE 20 MG/2 ML VIAL IV PUSH SCH ×2 (12:03→21:21)
[2017-02-10] MEDS: FUROSEMIDE 20 MG TAB PO SCH (12:03)
[2017-02-10] MEDS: METHADONE HCL 10 MG TAB PO SCH (15:56)
[2017-02-10 16:00] VITALS: BP 128/69; PULSE 67; RESP 18; TEMP 97.2; O2SAT 99
[2017-02-10] MEDS: HEPARIN SODIUM - SQ 10,000 UNITS/ML VIAL SQ SCH (18:09)
[2017-02-10 18:24] LABS: HEMOGLOBIN A1a 2.3 %; HEMOGLOBIN A1b 1.1 %; HEMOGLOBIN Ao 76.7 %; HEMOGLOBIN F 1.6 %; HEMOGLOBIN LA1C 1.9 %; HEMOGLOBIN P3 4.4 %
[2017-02-10 19:49] VITALS: BP 117/65; PULSE 82; RESP 20; TEMP 98.6; O2SAT 95
[2017-02-11 00:07] VITALS: BP 130/87; PULSE 63; RESP 20; TEMP 98; O2SAT 96
[2017-02-11 04:48] VITALS: BP 103/64; PULSE 65; RESP 20; TEMP 97.7; O2SAT 94
[2017-02-11] MEDS: HEPARIN SODIUM - SQ 10,000 UNITS/ML VIAL SQ SCH ×2 (06:03→16:04)
[2017-02-11] MEDS: glipiZIDE 10 MG TAB PO SCH ×2 (06:03→16:04)
[2017-02-11] MEDS: SODIUM CHLOR 0.9% 1000 ML INJ 1,000 ML IV SCH (06:03)
[2017-02-11] MEDS: INSULIN ASPART SUPPLEMENTAL SCALE SQ SCH ×2 (06:08→11:00)
[2017-02-11 07:30] LABS: BICARBONATE 31.6 MEQ/L (21.0-32.0); POTASSIUM 3.9 MEQ/L (3.5-5.1)
[2017-02-11 08:00] VITALS: BP 114/61; PULSE 57; RESP 20; TEMP 97.6; O2SAT 97
--- NOTE | 2017-02-11 08:39 | HHI.PR ---
Subjective Subjective Remarks no vomiting pt. states the every time he takes a sip of water, he feels like he is going to "vomit" but doesn't " I want to know what is going on" no cp no sob afebrile states hgb A1C was 15.9 and now 11.9 Review of Systems Constitutional Constitutional Remarks 12 point ROS completed, negative except as noted above Vitals/Results Intake & Output 02/10/17 02/10/17 02/11/17 15:00 23:00 07:00 Intake Total 1090 ml Output Total 960 ml Balance 130 ml Intake Oral 490 ml Other 600 ml Output Urine Total 960 ml # Bowel Movements 0 Vital Signs Vital Signs Date Time Temp Pulse Resp B/P Pulse Ox O2 Delivery O2 Flow Rate FiO2 02/11/17 04:48 97.7 65 20 103/64 94 02/11/17 00:07 98.0 63 20 130/87 96 02/10/17 21:48 Nasal Cannula 2.00 02/10/17 19:49 98.6 82 20 117/65 95 02/10/17 16:00 97.2 67 18 128/69 99 02/10/17 12:00 96.5 79 16 142/78 99 02/10/17 11:30 77 14 150/81 95 Room Air 02/10/17 11:15 84 15 152/86 96 Room Air 02/10/17 11:04 99.1 113 16 146/67 94 Room Air CBC/BMP: 02/10/17 0431 02/11/17 0651 Lab Results Laboratory Tests Test 02/11/17 06:51 Sodium Level 139 MEQ/L Potassium Level 3.9 MEQ/L Chloride Level 99 MEQ/L Carbon Dioxide Level 31.6 MEQ/L Anion Gap 8 MEQ/L Blood Urea Nitrogen 21 MG/DL Creatinine 1.59 MG/DL Estimat Glomerular Filtration 45 ML/MIN Rate Random Glucose 89 MG/DL Calcium Level 8.9 MG/DL Physical Exam General General Appearance: Well Developed, Comfortable, Obese Eyes Eye Exam: Pupils Equal, Pupils Reactive Ears & Nose Ears & Nose Exam: Nasal Mucosa [place] Throat Throat Exam: Oral Mucosa [place] & Moist Neck Neck Exam: Neck Supple, Trachea Midline Pulmonary Resp Exam: Decreased Bases Cardiology CV Exam: Regular, Good Perfusion Gastrointestinal/Abdomen GI Exam: Soft, Non-Tender, Bowel Sounds Present, Non-Distended Musculoskeletal MS Exam: Joints Intact Integumentary Skin Exam: Warm, Dry Extremeties Extremities Exam: Pedal Pulses Palpable, Moderate Edema Extremeties Remarks chronic venous stasis dermatitis, ulcers Neurologic Neuro Exam: Alert, Awake, Oriented, Speech Clear, Moving All Extremities, No Focal Deficits Psychiatric Psych Exam: Appropriate Responses PUD Prophylasis PUD Remarks Pepcid Assessment/Plan Problem List: (1) Venous stasis dermatitis of both lower extremities (2) Diabetes 1.5, managed as type 2 (3) COPD mixed type (4) Hypertension (5) Obesity (6) CHF (congestive heart failure) (7) Nausea & vomiting (8) Chronic pain (9) Renal insufficiency Assessment/Plan continue IVF Pepcid IV antiemetics PRN Barium swallow, no obstruction CT abd. no significant findings appreciate GI input S/P EGD 02/10 gastritis Monitor renal function IVF 1800 calorie ADA diet Accu-Cheks a.c. and h.s. with sliding scale insulin HgbA1C 11.9 needs better control, states it used be 15 continue with chronic pain management meds monitor for fluid overload continue PO lasix Continue IVF @ 50/hr Pepcid for GI prophylaxis will wait for GI feedback, pt. continues to complain of nausea, not vomiting. Poss. dc today D/W RN D/W attending D/W pt. This patient was seen by myself and attending, this note is written on their behalf. Problem Qualifiers (1) Hypertension: Qualified Code: I10 - Essential hypertension (2) Obesity: Qualified Code: E66.9 - Obesity, unspecified obesity severity, unspecified obesity type (3) CHF (congestive heart failure): Qualified Code: I50.9 - Chronic congestive heart failure, unspecified congestive heart failure type (4) Nausea & vomiting: Qualified Code: R11.2 - Non-intractable vomiting with nausea, unspecified vomiting type (5) Chronic pain: Qualified Code: G89.4 - Chronic pain syndrome S[facility] Reed Feb 11, 2017 08:39
[2017-02-11] MEDS: FENOFIBRATE 145 MG TAB PO SCH (09:00)
[2017-02-11] MEDS: METHADONE HCL 10 MG TAB PO SCH (09:54)
[2017-02-11] MEDS: FUROSEMIDE 20 MG TAB PO SCH (09:54)
[2017-02-11] MEDS: FAMOTIDINE 20 MG/2 ML VIAL IV PUSH SCH (09:54)
[2017-02-11] MEDS: LISINOPRIL 20 MG TAB PO SCH (09:54)
[2017-02-11] MEDS: SODIUM CHLORIDE 0.9% FLUSH 10 ML FLUSH IV FLUSH SCH (09:55)
[2017-02-11] MEDS: METOCLOPRAMIDE HCL 10 MG/2 ML VIAL IV PUSH SCH ×3 (10:02→16:04)
--- NOTE | 2017-02-11 11:25 | HHI.GIFU ---
Subjective Remarks Resting in bed. Had breakfast, but states that he becomes nauseous every time he tries to eat or drink. Has not actually vomiting. Of note, has DM and takes Methadone for chronic pain. (Mey Chin) Objective Vitals I&O Vital Signs Date Time Temp Pulse Resp B/P Pulse Ox O2 Delivery O2 Flow Rate FiO2 02/11/17 08:00 97.6 57 20 114/61 97 02/11/17 04:48 97.7 65 20 103/64 94 02/11/17 00:07 98.0 63 20 130/87 96 02/10/17 21:48 Nasal Cannula 2.00 02/10/17 19:49 98.6 82 20 117/65 95 02/10/17 16:00 97.2 67 18 128/69 99 02/10/17 12:00 96.5 79 16 142/78 99 02/10/17 11:30 77 14 150/81 95 Room Air I/O 02/10/17 02/10/17 02/10/17 02/11/17 02/11/17 02/11/17 07:00 15:00 23:00 07:00 15:00 23:00 Intake Total 1090 ml Output Total 960 ml 400 ml Balance 130 ml -400 ml Intake Oral 490 ml Other 600 ml Output Urine Total 960 ml 400 ml # Bowel Movements 0 Laboratory Laboratory Tests Test 02/11/17 06:51 Sodium Level 139 Potassium Level 3.9 Chloride Level 99 Carbon Dioxide Level 31.6 Anion Gap 8 Blood Urea Nitrogen 21 Creatinine 1.59 Estimat Glomerular Filtration 45 Rate Random Glucose 89 Calcium Level 8.9 Imaging Last Impressions Abdomen/Pelvis CT 02/08/172008 Signed Impressions: Service Date/Time: Wednesday, February 08, 2017 22:33 - CONCLUSION: 1. No acute abnormality. 2. Hepatic steatosis. 3. 1 mm nonobstructing right renal stone. Gary Hartman Jr., MD Barium Swallow X-Ray 02/08/17 0000 Signed Impressions: Service Date/Time: Wednesday, February 08, 2017 20:34 - CONCLUSION: Negative barium swallow. No evidence of obstruction, aspiration, or ulceration. Gary Smalls MD Physical Exam HEENT: Normocephalic; atraumatic; no jaundice. CHEST: CTA CARDIAC: RRR ABDOMEN: Soft, obese, nondistended, nontender; no hepatosplenomegaly; bowel sounds are present in all four quadrants. EXTREMITIES: BLE. Drsg rle d/i. SKIN: Normal; no rash; no jaundice. 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 (Mey Chin) Assessment and Plan Plan ASSESSMENT: - Nausea and vomiting with hx diabetes and chronic narcotic use at home for chronic pain. S/P EGD (02/10/17)----> 1. There was erythematous gastritis in the gastric body; biopsy was performed 2. Duodenal inflammation was found in the duodenal bulb 3. Retroflexed views revealed no abnormalities. Pathology pending. Continues to have n/v, seems to be aggravated by any po intake. Unable to have GES for 48 hours after receiving Propofol. Was started on trial of reglan. If responds, then will send out with this for a few weeks and plan for GES as outpatient. - DM, Chronic pain per primary, COPD, HTN, CHF, RI per primary. PLAN: - WILLI - Await pathology - PPI - Trial of reglan - Okay to d/c home when tolerating diet - FU JAJA 2 weeks - GES as outpatient - Pt seen and examined by Dr. Wang and myself and this note is written on his behalf (Mey Chin) Physician Comments Seen and examined with VALENTINE< somewhat better today. S/P egd, biopsies-p. Needs GES. Canbe done as outpt. Gi fu upon dc in 02 weeks. Will sign off. Thank you ( Anastacio Wang MD) Mey Chin Feb 11, 2017 11:25 Anastacio Wang MD Feb 11, 2017 18:48
[2017-02-11 12:00] VITALS: BP 120/67; PULSE 66; RESP 20; TEMP 98; O2SAT 95
[2017-02-11 13:43] VITALS: O2SAT 96
[2017-02-11 16:04] VITALS: BP 106/60; PULSE 64; RESP 20; TEMP 99; O2SAT 100
[2017-02-11] MEDS ORDERED: REGL5TAB PO (16:12)
--- NOTE | 2017-02-11 16:12 | HHI.DCPOC ---
Discharge Care Plan Diagnosis: (1) Nausea & vomiting Your Health Problems Are: Appetite Changes Irregular Bowel Function Goals to Promote Your Health * To prevent worsening of your condition and complications * To maintain your health at the optimal level Directions to Meet Your Goals Take your medications as prescribed Follow your dietary instruction Follow activity as directed Keep your appointments as scheduled Take your immunizations and boosters as scheduled If your symptoms worsen call your PCP, if no PCP go to Urgent Care Center or Emergency Room Smoking is Dangerous to Your Health. Avoid second hand smoke Call the 24-hour hour crisis hotline for domestic abuse at [facility]. [facility] Feb 11, 2017 16:12
--- NOTE | 2017-02-11 16:14 | HHI.DS ---
Discharge Summary Admission Date Feb 09, 2017 at 02:05 Discharge Date: Feb 11, 2017 Admitting Diagnosis PO intolerance (1) Nausea & vomiting (2) Chronic pain (3) Hypertension (4) Diabetes 1.5, managed as type 2 (5) CHF (congestive heart failure) (6) Obesity (7) Venous stasis dermatitis of both lower extremities Procedures S/P EGD 02/10 gastritis CBC/BMP: 02/10/17 0431 02/11/17 0651 Significant Findings Laboratory Tests Test 02/08/17 02/09/17 02/10/17 02/11/17 20:20 00:13 04:31 06:51 White Blood Count 12.7 TH/MM3 (4.0-11.0) Mean Corpuscular Hemoglobin 26.9 PG (27.0-34.0) Neutrophils (%) (Auto) 71.5 % (16.0-70.0) Neutrophils # (Auto) 9.1 TH/MM3 (1.8-7.7) Sodium Level 135 MEQ/L (136-145) Blood Urea Nitrogen 26 MG/DL (7-18) 21 MG/DL (7-18) 21 MG/DL (7-18) Creatinine 1.45 MG/DL 1.44 MG/DL 1.59 MG/DL (0.60-1.30) (0.60-1.30) (0.60-1.30) Estimat Glomerular Filtration 51 ML/MIN (>89) 51 ML/MIN (>89) 45 ML/MIN (>89) Rate Random Glucose 182 MG/DL (74-106) Troponin I LESS THAN 0.02 NG/ML (0.02-0.05) Total Protein 8.5 GM/DL (6.4-8.2) Urine Mucus FEW /lpf (OCC) Hemoglobin A1c 11.9 % (4.3-6.0) Imaging Last Impressions Abdomen/Pelvis CT 02/08/172008 Signed Impressions: Service Date/Time: Wednesday, February 08, 2017 22:33 - CONCLUSION: 1. No acute abnormality. 2. Hepatic steatosis. 3. 1 mm nonobstructing right renal stone. Gary Hartman Jr., MD Barium Swallow X-Ray 02/08/17 0000 Signed Impressions: Service Date/Time: Wednesday, February 08, 2017 20:34 - CONCLUSION: Negative barium swallow. No evidence of obstruction, aspiration, or ulceration. Gary Smalls MD Hospital Course This is a pleasant morbidly obese 56-year-old white male who comes to the ER with struggles to eat and drink in the past five days. The patient was in his usual state of health until five days ago. When he attempted to eat solid foods or even liquids he felt that they get stuck and want to come back up. He is usually not vomiting up chewed or regular food. He describes a phlegm and increased saliva that he is spitting up almost continuously. He states that he eats his last meal approximately 9:00 p.m. at night. He stated that he does not lay flat normally to sleep but continues to struggle with the foods and liquid feeling like they are not going down into his stomach. He does state on occasions the food appears to be stuck in his mid to lower esophagus and then all of a sudden he will feel a release to the food and liquids going through. He denies any chest pain, no shortness of breath. He does struggle with diabetes and venous insufficiency. He does have a chronic wound which is bandaged on his right lower leg. He does see the wound care clinic as well as daily bandages on this wound. The patient does note chronic pain but also has acute pain during his episodes of attempting to eat. The patient states no BM in the past 4-5 days, but according to the record he did note a BM yesterday which was normal. The patient is alert, oriented, fairly good historian. Does appear to have some mild anxiety related to this current issue. The patient had a barium swallow while in the emergency room which was negative, it showed no evidence of obstruction, aspiration or ulceration. Evaluated in the ED, work up done WBC count 12.7, RBC 5.44, hemoglobin 14.6, hematocrit 45.4. MCH 26.9, platelet count 253. Other abnormals are neutrophil auto count percentage 71.5. Chemistry sodium 135, potassium 4.5, chloride 99, carbon dioxide 26.4, amnion gap 10, BUN 26, creatinine 1.45. GFR 51, random glucose 182, lactic acid 1.4. Troponin is less than 0.02. Total protein 8.5, albumin 3.7, lipase 393. Urine is yellow, clear, PH 5.5, specific gravity 1.033, negative protein, trace glucose, negative ketones, occult blood, nitrites, bilirubin, and leukocyte esterase. A few urine mucous. Barium swallow: Negative exam, no evidence of obstruction, aspiration or ulceration. Abdomen/pelvic CT: No abnormalities, hepatic steatosis, 1 mm of nonobstructing right renal stone. Pt. was admitted for further evaluation and treatment: (1) Nausea & vomiting (2) Diabetes 1.5, managed as type 2 (3) COPD mixed type (4) Hypertension (5) Obesity (6) CHF (congestive heart failure) (7) Venous stasis dermatitis of both lower extremities (8) Chronic pain (9) Renal insufficiency During the course of the hospitalization, the following took place: Patient was admitted, put on IV fluids. Gastroenterology was consulted for evaluation Accu-Cheks before meals and at bedtime were ordered Antiemetics were order as needed Home medications were reviewed and initiated as indicated Chronic pain medications were initiated Patient was put on Pepcid IV for GI prophylaxis. As indicated above, barium swallow did not reveal any obstruction. CT of the abdomen did not reveal any significant findings. GI recommended upper endoscopy. Underwent EGD / -follow with gastritis gastritis. This particular No esophageal strictures were noted Renal function was monitored closely, creatinine elevated, was continued on IV fluids, nephrotoxic agents were avoided Patient put on Accu-Cheks, was noted with hemoglobin A1c of 11.9. Patient indicated that it was 15. He was working at home when trying to control blood glucose better. Patient had history of chronic CHF, was continued on oral Lasix. No evidence of fluid overload noted. After procedure, patient continued to complain of some nausea. GES was considered. Patient was unable to have gastric emptying study because of recent EGD. Patient wasn't actually vomiting, he had nausea and occasionally was spitting up clear sputum. He was tolerating meals. He was able to complete meals when he ate slowly. He was started on Reglan, he was able to tolerate diet well Patient clinically stable, abdominal pain well controlled. No excessive vomiting. Patient agreed to follow-up with gastroenterology in 7-10 days to schedule GES GI okay with discharge Patient discharged home in stable condition Pt Condition on Discharge: Stable Discharge Disposition: Discharge Home Discharge Instructions DIET: Follow Instructions for: Diabetic Diet Activities you can perform: Weight Bearing as Poli Follow up Referrals: Gastroenterology - 10 Days with Anastacio Wang MD PCP Follow-up New Medications: Metoclopramide (Reglan) 5 Mg Tab 5 MG PO TIDAC Nausea #30 Ref 0 TAB Continued Medications: Albuterol 8.5 GM Inh (Proair Hfa 8.5 GM Inh) 90 Mcg/Act Aer 2 PUFF INH Q4-6H 108 mcg/actuation PRN SHORTNESS OF BREATH #1 Ref 0 INHALER Fenofibrate (Fenofibrate) 160 Mg Tab 160 MG PO DAILY #30 Ref 0 TAB Furosemide (Furosemide) 20 Mg Tab 20 MG PO DAILY #30 Ref 0 TAB Glipizide (Glipizide) 10 Mg Tab 10 MG PO BIDAC Take 30 minutes before a meal Blood Sugar Management #60 Ref 0 TAB Insulin Detemir Inj (Levemir Inj) 1,000 unit/ 10 ML Vial 65 UNITS SQ HS Do not mix with any other Insulin. Blood Sugar Management Ref 0 VIAL Lisinopril (Lisinopril) 20 Mg Tab 25 MG PO DAILY #30 Ref 0 TAB Methadone (Methadone) 10 Mg Tab 110 MG PO DAILY Ref 0 TAB Discontinued Medications: Sulfamethoxazole-Trimethoprim (Bactrim DS) 800-160 Mg Tab 1 TAB PO BID Infection #20 Ref 0 TAB Sapphire Reed [facility] Feb 11, 2017 16:14
[2017-02-12] MEDS ORDERED: REMOVE OLD PATCH T-DERMAL PRN (23:00)
== END 2017-02-11 18:39 | disposition home or self-care (01) ==
LOC: NEPC 18:10 → NEDA 02-09 02:05 → NEPFCDU 02-09 04:40
PROVIDERS: ADMIT Internal Medicine; ATTEND Internal Medicine
DX: K29.70 Gastritis, unspecified, without bleeding (principal); K29.80 Duodenitis without bleeding; E11.9 Type 2 diabetes mellitus without complications; I87.2 Venous insufficiency (chronic) (peripheral); M19.90 Unspecified osteoarthritis, unspecified site; G89.29 Other chronic pain; M54.9 Dorsalgia, unspecified; K21.9 Gastro-esophageal reflux disease without esophagitis; I11.0 Hypertensive heart disease with heart failure; I50.9 Heart failure, unspecified; J44.9 Chronic obstructive pulmonary disease, unspecified; N28.9 Disorder of kidney and ureter, unspecified; F17.210 Nicotine dependence, cigarettes, uncomplicated; E66.01 Morbid (severe) obesity due to excess calories; Z68.41 Body mass index [BMI] 40.0-44.9, adult; Z88.0 Allergy status to penicillin; Z79.4 Long term (current) use of insulin
CPT/HCPCS: 00740; 43239; 74177; 74230; 80048; 80053; 81001; 82948; 83036; 83605; 83690; 84484; 85025; 88305; 93005; 96361; 96365; 96375; 99285; G0378; J1644; J2405; J2765; J7030; Q9967; 88312

== ENCOUNTER 2017-10-25 11:36 | Inpatient (IN) | payer OTHER, MEDICARE ==
[~2017-10-25] VITALS: Ht 154.9 cm; Wt 148.6 kg
[~2017-10-25 11:36] MED LIST changes: -ADVAI250I INH; -ALBU8I INH; +ALBUAER3 INH; -AMLO5 PO; -BACT800T5 PO; -CEPH500T PO; +DOXY100C PO; -DUONI INH; +FENO160T PO; -FURO10S PO; +FURO40TA PO; +GLIP10TA6 PO; +LEVA750T9 PO; +LISI-515 PO; +METH10TA PO; -METO25 PO; -NEBUMIS6 INH; +REGL5TAB PO; +ROXI15TA9 PO; -SUBO8MIS SL; +VICT18IN SQ; -Z.0.OXYGENDME NC
[2017-10-25 11:38] VITALS: BP 123/67; PULSE 94; RESP 16; TEMP 98.1; O2SAT 96
[2017-10-25 12:53] LABS: AUTOMATED NEUTROPHIL # 7.4 TH/MM3 (1.8-7.7); BASOPHIL % 0.4 % (0.0-2.0); EOSINOPHIL # 0.2 TH/MM3 (0-0.4); EOSINOPHIL % 1.6 % (0.0-4.0); HEMATOCRIT 36.3 % (39.0-51.0); HEMO FLAGS DIFF FINAL; LYMPHOCYTE # 1.8 TH/MM3 (1.0-4.8); MEAN CELL VOLUME 82.4 FL (80.0-100.0); MEAN CORPUSCULAR HEMOGLOBIN 27.2 PG (27.0-34.0); MONO % 7.3 % (0.0-8.0); NEUT % 72.7 % (16.0-70.0); PLATELET COUNT 273 TH/MM3 (150-450); RED BLOOD COUNT 4.41 MIL/MM3 (4.50-5.90); RED CELL DISTRIBUTION WIDTH 15.4 % (11.6-17.2); WHITE BLOOD COUNT 10.1 TH/MM3 (4.0-11.0)
[2017-10-25 13:03] LABS: APTT (PATIENT) 28.6 SEC (24.3-30.1); INTERNATIONAL NORMALIZED RATIO 1.2 RATIO
--- NOTE | 2017-10-25 13:03 | RADRPT ---
EXAM DATE/TIME: 10/25/2017 12:36 [facility] COMPARISON: CHEST SINGLE AP, January 15, 2015, 11:28. INDICATIONS : Fever. and open sore on sie of foot. MEDICAL HISTORY : Diabetes mellitus type II. Hypertension. Chronic obstructive pulmonary disease. Deep venous thr ombosis. SURGICAL HISTORY : Lumbar surgery. ENCOUNTER: Initial ACUITY: 1 day PAIN SCORE: 4/10 LOCATION: Bilateral chest FINDINGS: A single view of the chest demonstrates the lungs to be symmetrically aerated without evidence of mas s, infiltrate or effusion. The cardiomediastinal contours are unremarkable. Osseous structures are intact. CONCLUSION: Normal examination. Oren Rivas MD on October 25, 2017 at 13:01 Board Certified Radiologist. This report was verified electronically.
--- NOTE | 2017-10-25 13:05 | RADRPT ---
EXAM DATE/TIME: 10/25/2017 12:39 [facility] COMPARISON: No previous studies available for comparison. INDICATIONS : Open sore on side of foot. MEDICAL HISTORY : Diabetes mellitus type II. Hypertension. Chronic obstructive pulmonary disease. Deep venous thr ombosis. SURGICAL HISTORY : Lumbar surgery. ENCOUNTER: Initial ACUITY: 1 day PAIN SCORE: 4/10 LOCATION: Left Foot. FINDINGS: Three view examination of the left foot demonstrates no dislocation, or fracture. There is a small margaret cency within the subcutaneous fat at the fifth metatarsal base consistent with soft tissue ulcer. The tarsal bones appear intact. The interphalangeal and metatarsophalangeal joints are intact. The justice caneus is intact. Bony mineralization is normal. Ossification of the Achilles insertion. CONCLUSION: Soft tissue ulcer lateral left foot without underlying bony fracture or ostial lysis to suggest osteo myelitis. Marked spurring of the anterior tibiotalar joint Oren Rivas MD on October 25, 2017 at 13:02 Board Certified Radiologist. This report was verified electronically.
[2017-10-25 13:10] LABS: ANION GAP 9 MEQ/L (5-15); AST (GOT) 15 U/L (15-37); BLOOD UREA NITROGEN 41 MG/DL (7-18); CHLORIDE 99 MEQ/L (98-107); GLOMERULAR FILTRATION RATE 35 ML/MIN (>89); POTASSIUM 4.7 MEQ/L (3.5-5.1); SODIUM (NA) 134 MEQ/L (136-145)
[2017-10-25 13:11] LABS: ALT (GPT) 16 U/L (12-78)
[2017-10-25] MEDS ORDERED: AFRI0.052 EACH NARE (13:11)
[2017-10-25] MEDS ORDERED: LISI20TA3 PO (13:11)
[2017-10-25 13:13] LABS: ALKALINE PHOSPHATASE 45 U/L (45-117); TOTAL BILIRUBIN ADULT 0.4 MG/DL (0.2-1.0)
--- NOTE | 2017-10-25 13:13 | PD ---
HPI Chief Complaint: Skin Problem Time Seen by Provider: 12:18 Travel History International Travel<30 days: No Contact w/Intl Traveler<30days: No Traveled to known affect area: No History of Present Illness HPI Patient is a 57-year-old male presents emergency department for evaluation of left foot wound. Patient has a history of diabetic ulcers, he's been followed by podiatry has had 2 debridements over the last several weeks. On of last week he noted foul odor and drainage as well as increasing pain. He called desulfurizer operator office on Tuesday but he was not in. He presents today on the advice of a friend who is a nurse. Patient denies any fevers, chills, nausea, vomiting. He reports the pain is a 7 out of 10 and states it's sore and throbbing. Patient's past medical history is significant for type 2 diabetes, hyperlipidemia, hypertension, obesity, neuropathy. He is on methadone and oxycodone for chronic back pain. PFSH Past Medical History Cancer: No High Cholesterol: Yes Congestive Heart Failure: No COPD: Yes Cerebrovascular Accident: No Diabetes: Yes Patient Takes Glucophage: No Diminished Hearing: No Genitourinary: No Hypertension: Yes Immune Disorder: No Medical other: Yes (morbid obesity) Neurologic: Yes (peripheral neuropathy) Psychiatric: No Reproductive: No Respiratory: No Immunizations Current: Yes Seizures: No Past Surgical History Other Surgery: Yes (L LEG WOUND DEBRIDEMENT) Social History Alcohol Use: No Tobacco Use: Yes Substance Use: No Allergies-Medications (Allergen,Severity, Reaction): Coded Allergies: penicillin G (Unverified Allergy, Severe, Anaphylaxis, 10/18/17) Reported Meds & Prescriptions Reported Meds & Active Scripts Active Doxycycline Hyclate 100 Mg Cap 100 Mg PO BID Reported Afrin Nasal Holly (Oxymetazoline HCl) 0.05% Holly 2-3 Holly EACH NARE Q12H PRN Lisinopril-Hctz 20-25 Mg Tab 1 Tab PO DAILY Furosemide 40 Mg Tab 40 Mg PO BID Levemir Inj (Insulin Detemir) 1,000 unit/ 10 ML Vial 70 Units SQ HS Do not mix with any other Insulin. Victoza Inj (Liraglutide Inj) 18 Mg/3 Ml Pen 1.2 Mg SQ DAILY Roxicodone (Oxycodone HCl) 15 Mg Tab 15 Mg PO Q4H PRN Methadone (Methadone HCl) 10 Mg Tab 70 Mg PO DAILY Proair Hfa 8.5 GM Inh (Albuterol Sulfate) 90 Mcg/Act Aer 2 Puff INH Q4-6H PRN 108 mcg/actuation Fenofibrate 160 Mg Tab 160 Mg PO DAILY Glipizide 10 Mg Tab 10 Mg PO BIDAC Take 30 minutes before a meal Review of Systems Except as stated in HPI: all other systems reviewed are Neg Musculoskeletal: Positive: Pain Skin: Positive Change in Pigmentation, Positive Lesions Physical Exam Narrative GENERAL: Or poorly obese, well-developed, alert male. Resting comfortably in no acute distress. SKIN: Warm and dry. 4 cm x 4 cm area of fluctuance to the lateral aspect of the left foot, 2 cm x 2 cm area of ulceration to the plantar aspect of the left foot over the fifth metatarsal. Chronic skin changes noted to bilateral lower extremities HEAD: Atraumatic. Normocephalic. EYES: Pupils equal and round. No scleral icterus. No injection or drainage. ENT: No nasal bleeding or discharge. Mucous membranes pink and moist. NECK: Trachea midline. No JVD. CARDIOVASCULAR: Regular rate and rhythm. RESPIRATORY: No accessory muscle use. Clear to auscultation. Breath sounds equal bilaterally. GASTROINTESTINAL: Abdomen soft, non-tender, nondistended. Hepatic and splenic margins not palpable. MUSCULOSKELETAL: Extremities without clubbing, cyanosis, nonpitting edema to extremities. No obvious deformities. Palpable pedal pulses bilaterally. NEUROLOGICAL: Awake and alert. No obvious cranial nerve deficits. Motor grossly within normal limits. Five out of 5 muscle strength in the arms and legs. Normal speech. PSYCHIATRIC: Appropriate mood and affect; insight and judgment normal. Data Data Last Documented VS Vital Signs Date Time Temp Pulse Resp B/P (MAP) Pulse Ox O2 Delivery O2 Flow Rate FiO2 10/25/17 15:22 81 16 118/59 (78) 97 10/25/17 12:20 Room Air 10/25/17 11:38 98.1 Orders Orders Sepsis Workup Initiated (10/25/17 ) Complete Blood Count With Diff (10/25/17 12:18) Comprehensive Metabolic Panel (10/25/17 12:18) Prothrombin Time / Inr (Pt) (10/25/17 12:18) Act Partial Throm Time (Ptt) (10/25/17 12:18) Lactic Acid Sepsis Protocol (10/25/17 12:18) Blood Culture (10/25/17 12:18) Wound Culture And Gram Stain (10/25/17 12:18) Chest, Single Ap (10/25/17 12:18) Blood Glucose (10/25/17 12:18) Ecg Monitoring (10/25/17 12:18) Iv Access Insert/Monitor (10/25/17 12:18) Oximetry (10/25/17 12:18) Oxygen Administration (10/25/17 12:18) Foot, Complete ([id number]) (10/25/17 ) C-Reactive Protein (Crp) (10/25/17 13:18) Westergren Sedimentation Rate (10/25/17 13:18) Electrocardiogram (10/25/17 ) Aztreonam Inj (Azactam Inj) (10/25/17 13:21) Metronidazole 500 Mg Inj (Flagyl 500 Mg (10/25/17 13:21) Vancomycin Inj (Vancomycin Inj) (10/25/17 13:21) Oxycodone (Roxicodone) (10/25/17 13:45) Ketorolac Inj (Toradol Inj) (10/25/17 14:15) Diphenhydramine Inj (Benadryl Inj) (10/25/17 14:15) Admit To Inpatient (10/25/17 ) Vital Signs (Adult) Q4H (10/25/17 15:08) Activity Oob With Assistance (10/25/17 15:08) Multiple Knife Edge Trimmer Operator / Telemetry .CONTINUOUS (10/25/17 15:08) Diet 1800 Ada Cons Carb (10/25/17 Dinner) Diet Heart Healthy (10/25/17 Dinner) Sodium Chloride 0.9% Flush (Ns Flush) (10/25/17 15:15) Sodium Chloride 0.9% Flush (Ns Flush) (10/25/17 21:00) Basic Metabolic Panel (Bmp) (10/26/17 06:00) Complete Blood Count With Diff (10/26/17 06:00) Pt Request For Service (10/25/17 15:08) Case Management Consult (10/25/17 15:08) Naloxone Inj (Narcan Inj) (10/25/17 15:15) Inpatient Certification (10/25/17 ) Vancomycin Consult Pharmacy (Vancomycin (10/25/17 15:15) Cefepime Inj (Maxipime Inj) (10/26/17 09:00) Morphine Inj (Morphine Inj) (10/25/17 15:15) Consult Podiatry (10/25/17 ) (Hub Use Only)Inp Phy Cons/Ref (10/25/17 ) Admit Order (Ed Use Only) (10/25/17 15:31) Labs Laboratory Tests Test 10/25/17 12:20 White Blood Count 10.1 TH/MM3 Red Blood Count 4.41 MIL/MM3 Hemoglobin 12.0 GM/DL Hematocrit 36.3 % Mean Corpuscular Volume 82.4 FL Mean Corpuscular Hemoglobin 27.2 PG Mean Corpuscular Hemoglobin Concent 33.0 % Red Cell Distribution Width 15.4 % Platelet Count 273 TH/MM3 Mean Platelet Volume 7.8 FL Neutrophils (%) (Auto) 72.7 % Lymphocytes (%) (Auto) 18.0 % Monocytes (%) (Auto) 7.3 % Eosinophils (%) (Auto) 1.6 % Basophils (%) (Auto) 0.4 % Neutrophils # (Auto) 7.4 TH/MM3 Lymphocytes # (Auto) 1.8 TH/MM3 Monocytes # (Auto) 0.7 TH/MM3 Eosinophils # (Auto) 0.2 TH/MM3 Basophils # (Auto) 0.0 TH/MM3 CBC Comment DIFF FINAL Differential Comment Erythrocyte Sedimentation Rate 61 mm/hr Prothrombin Time 12.0 SEC Prothromb Time International Ratio 1.2 RATIO Activated Partial Thromboplast Time 28.6 SEC Blood Urea Nitrogen 41 MG/DL Creatinine 1.97 MG/DL Random Glucose 74 MG/DL Total Protein 8.7 GM/DL Albumin 3.2 GM/DL Calcium Level 9.3 MG/DL Alkaline Phosphatase 45 U/L Aspartate Amino Transf (AST/SGOT) 15 U/L Alanine Aminotransferase (ALT/SGPT) 16 U/L Total Bilirubin 0.4 MG/DL Sodium Level 134 MEQ/L Potassium Level 4.7 MEQ/L Chloride Level 99 MEQ/L Carbon Dioxide Level 26.0 MEQ/L Anion Gap 9 MEQ/L Estimat Glomerular Filtration Rate 35 ML/MIN Lactic Acid Level 1.6 mmol/L C-Reactive Protein 6.20 MG/DL MDM Medical Decision Making Medical Screen Exam Complete: Yes Emergency Medical Condition: Yes Medical Record Reviewed: Yes Interpretation(s) Vital Signs Date Time Temp Pulse Resp B/P (MAP) Pulse Ox O2 Delivery O2 Flow Rate FiO2 10/25/17 12:20 Room Air 10/25/17 12:20 Room Air 10/25/17 11:38 98.1 94 16 123/67 (85) 96 Room Air Differential Diagnosis Cellulitis versus osteomyelitis versus necrotizing fasciitis versus diabetic ulcer versus other Narrative Course patient is a 57-year-old male presenting for evaluation of a left foot wound that has been increasing in pain as well as foul odor and drainage for the last several days. She is vital signs are stable, labs and imaging ordered and pending. Wound culture obtained. EKG was obtained to assess QTc intervals. EKG read sinus rhythm with a ventricular rate of 88, QTC is 404 CBC is unremarkable Chemistry with elevated BUN and creatinine of 41/1.97, this is increased from the prior result Lactic acid is 1.6 Sedimentation rate and CRP are pending X-ray of the left foot which was read by the radiologist shows soft tissue ulcer lateral left foot without underlying bony fracture osteal lysis to suggest osteomyelitis. Marked spurring of the anterior tibiotalar joint Chest x-ray shows no acute disease Patient was started on aztreonam, vancomycin, metronidazole IV. Sedimentation rate is 61, CRP is 6.[address] He who accepted admission. Admission orders placed. Diagnosis Primary Impression: Acute kidney injury Additional Impression: Cellulitis and abscess of foot Admitting Information Admitting Physician Requests: Admit Lashaun Goodman Oct 25, 2017 13:13
[2017-10-25] MEDS ORDERED: metroNIDAZOLE 500 MG INJ 100 ML IV STA (13:21)
[2017-10-25] MEDS ORDERED: VANCOMYCIN INJ 1,000 MG in SODIUM CHLOR 0.9% 250 ML INJ 250 ML IV STA (13:21)
[2017-10-25] MEDS ORDERED: AZTREONAM INJ 2,000 MG in SODIUM CHLORIDE 0.9% INJ 100 ML IV STA (13:21)
[2017-10-25] MEDS ORDERED: KETOROLAC TROMETHAMINE 30 MG/ML (IVP) VIAL IV PUSH ONE (14:15)
[2017-10-25] MEDS ORDERED: diphenhydrAMINE HCL 50 MG/ML VIAL IV PUSH ONE (14:15)
[2017-10-25] MEDS ORDERED: Vancomycin Consult Pharmacy 1 EA OTHER SCH (15:15)
[2017-10-25] MEDS ORDERED: SODIUM CHLORIDE 0.9% FLUSH 10 ML FLUSH IV FLUSH PRN (15:15)
[2017-10-25] MEDS ORDERED: NALOXONE HCL 0.4 MG/ML AMP IV PUSH PRN (15:15)
[2017-10-25 15:22] VITALS: BP 118/59; PULSE 81; RESP 16; O2SAT 97
[2017-10-25 16:35] VITALS: BP 122/59; PULSE 87; RESP 20; TEMP 98.8; O2SAT 98
[2017-10-25] MEDS ORDERED: OXYCODONE 15 MG PO PRN (17:15)
[2017-10-25] MEDS: MORPHINE SULFATE 2 MG/ML INJ IV PRN ×2 (17:22→21:19)
[2017-10-25] MEDS ORDERED: DEXTROSE 50% IN WATER 50 ML VIAL(D50) IV PUSH PRN (20:15)
[2017-10-25] MEDS ORDERED: GLUCAGON 1 MG/ML VIAL OTHER PRN (20:15)
--- NOTE | 2017-10-25 20:17 | HHI.HP ---
[facility] Tee Dupree M.D. Admission Diagnosis CELLULITIS AND ABSCESS OF FOOT Diagnoses: Travel History International Travel<30 Days: No Contact w/Intl Traveler <30 Da: No Traveled to Known Affected Are: No History of Present Illness 57-year-old male with a past medical history significant for insulin-dependent diabetes mellitus, hypertension and chronic pain presents to the emergency department with a foot ulcer that has been progressively worsening. The patient was seen in the office by Dr. Altman twice over the past 2 weeks for debridement of a diabetic foot wound. He reports that his dressing became saturated with purulent material that was foul-smelling and he had a neighbor who is also a nurse change the dressing. He states that she told him that the wound was infected and he needed to come to the emergency department. The patient reports a 1-1/2 week history of fever/chills. Foot x-ray showed soft tissue ulcer on the lateral left foot without underlying osteo lysis. Review of Systems Subjective fever/chills Denies blurry vision, otorrhea, rhinorrhea Denies sore throat and cough No chest pain, palpitations, shortness of breath No abdominal pain Denies constipation/diarrhea/nausea/vomiting Denies muscle pain/weakness No rashes Past Family Social History Past Medical History Insulin-dependent diabetes mellitus Hypertension Chronic pain Past Surgical History Back surgery 5 Reported Medications Reported Meds & Active Scripts Active Doxycycline Hyclate 100 Mg Cap 100 Mg PO BID Reported Afrin Nasal [place] (Oxymetazoline HCl) 0.05% [place] 2-3 [place] EACH NARE Q12H PRN Lisinopril-Hctz 20-25 Mg Tab 1 Tab PO DAILY Furosemide 40 Mg Tab 40 Mg PO BID Levemir Inj (Insulin Detemir) 1,000 unit/ 10 ML Vial 70 Units SQ HS Do not mix with any other Insulin. Victoza Inj (Liraglutide Inj) 18 Mg/3 Ml Pen 1.2 Mg SQ DAILY Roxicodone (Oxycodone HCl) 15 Mg Tab 15 Mg PO Q4H PRN Methadone (Methadone HCl) 10 Mg Tab 70 Mg PO DAILY Proair Hfa 8.5 GM Inh (Albuterol Sulfate) 90 Mcg/Act Aer 2 Puff INH Q4-6H PRN 108 mcg/actuation Fenofibrate 160 Mg Tab 160 Mg PO DAILY Glipizide 10 Mg Tab 10 Mg PO BIDAC Take 30 minutes before a meal Allergies: Coded Allergies: penicillin G (Unverified Allergy, Severe, Anaphylaxis, 10/18/17) Family History Mom with diabetes mellitus Social History Current daily smoker, smokes approximately 1 pack over 3 days. Denies alcohol, illicit drugs. Physical Exam Vital Signs Vital Signs Date Time Temp Pulse Resp B/P (MAP) Pulse Ox O2 Delivery O2 Flow Rate FiO2 10/25/17 16:35 98.8 87 20 122/59 (80) 98 10/25/17 15:22 81 16 118/59 (78) 97 10/25/17 12:20 Room Air 10/25/17 12:20 Room Air 10/25/17 11:38 98.1 94 16 123/67 (85) 96 Room Air Physical Exam GENERAL: Obese, male lying in bed SKIN: 4 x 4 centimeter area of fluctuant to the lateral aspect of the left foot with necrotic changes and purulent drainage. 2 x 2 cm area of ulceration to the plantar aspect of the left foot over the fifth metatarsal. HEAD: Atraumatic. Normocephalic. No temporal or scalp tenderness. EYES: Pupils equal round and reactive. Extraocular motions intact. No scleral icterus. No injection or drainage. ENT: Nose without bleeding, purulent drainage or septal hematoma. Throat without erythema, tonsillar hypertrophy or exudate. Uvula midline. Airway patent. NECK: Trachea midline. No JVD or lymphadenopathy. Supple, nontender, no meningeal signs. CARDIOVASCULAR: Regular rate and rhythm without murmurs, gallops, or rubs. RESPIRATORY: Clear to auscultation. Breath sounds equal bilaterally. No wheezes , rales, or rhonchi. GASTROINTESTINAL: Abdomen soft, non-tender, nondistended. No hepato-splenomegaly , or palpable masses. No guarding. MUSCULOSKELETAL: 2+ edema in the bilateral lower extremities. No calf tenderness. NEUROLOGICAL: Awake and alert. Cranial nerves II through XII intact. Motor and sensory grossly within normal limits. Normal speech. Laboratory Laboratory Tests Test 10/25/17 12:20 White Blood Count 10.1 Red Blood Count 4.41 Hemoglobin 12.0 Hematocrit 36.3 Mean Corpuscular Volume 82.4 Mean Corpuscular Hemoglobin 27.2 Mean Corpuscular Hemoglobin Concent 33.0 Red Cell Distribution Width 15.4 Platelet Count 273 Mean Platelet Volume 7.8 Neutrophils (%) (Auto) 72.7 Lymphocytes (%) (Auto) 18.0 Monocytes (%) (Auto) 7.3 Eosinophils (%) (Auto) 1.6 Basophils (%) (Auto) 0.4 Neutrophils # (Auto) 7.4 Lymphocytes # (Auto) 1.8 Monocytes # (Auto) 0.7 Eosinophils # (Auto) 0.2 Basophils # (Auto) 0.0 CBC Comment DIFF FINAL Differential Comment Erythrocyte Sedimentation Rate 61 Prothrombin Time 12.0 Prothromb Time International Ratio 1.2 Activated Partial Thromboplast Time 28.6 Blood Urea Nitrogen 41 Creatinine 1.97 Random Glucose 74 Total Protein 8.7 Albumin 3.2 Calcium Level 9.3 Alkaline Phosphatase 45 Aspartate Amino Transf (AST/SGOT) 15 Alanine Aminotransferase (ALT/SGPT) 16 Total Bilirubin 0.4 Sodium Level 134 Potassium Level 4.7 Chloride Level 99 Carbon Dioxide Level 26.0 Anion Gap 9 Estimat Glomerular Filtration Rate 35 Lactic Acid Level 1.6 C-Reactive Protein 6.20 Date/Time Source Procedure Growth Status 10/25/17 12:25 Blood Peripheral Aerobic Blood Culture Pending Received 10/25/17 12:25 Blood Peripheral Anaerobic Blood Culture Pending Received 10/25/17 12:30 Wound Foot Gram Stain - Final Resulted 10/25/17 12:30 Wound Foot Wound Culture Pending Resulted Result Diagram: 10/25/17 1220 10/25/17 1220 Caprini VTE Risk Assessment Caprini VTE Risk Assessment: No/Low Risk (score <= 1) Caprini Risk Assessment Model Point Value = 1 Point Value = 2 Point Value = 3 Point Value = 5 Age 41-60 Minor surgery BMI > 25 kg/m2 Swollen legs Varicose veins or History of unexplained or recurrent spontaneous Oral contraceptives or hormone replacement Sepsis (< 1 month) Serious lung disease, including pneumonia (< 1 month) Abnormal pulmonary function Acute myocardial infarction Congestive heart failure (< 1 month) History of inflammatory bowel disease Medical patient at bed rest Age 61-74 Arthroscopic surgery Major open surgery (> 45 min) Laparoscopic surgery (> 45 min) Malignancy Confined to bed (> 72 hours) Immobilizing plaster cast Central venous access Age >= 75 History of VTE Family history of VTE Factor V Leiden Prothrombin [id number] Lupus anticoagulant Anticardiolipin antibodies Elevated serum homocysteine Heparin-induced thrombocytopenia Other congenital or acquired thrombophilia Stroke (< 1 month) Elective arthroplasty Hip, pelvis, or leg fracture Acute spinal cord injury (< 1 month) Prophylaxis Regimen Total Risk Factor Score Risk Level Prophylaxis Regimen 0-1 Low Early ambulation 2 Moderate Order ONE of the following: *Sequential Compression Device (SCD) *Heparin 5000 units SQ BID 3-4 Higher Order ONE of the following medications: *Heparin 5000 units SQ TID *Enoxaparin/Lovenox 40 mg SQ daily (WT < 150 kg, CrCl > 30 mL/min) *Enoxaparin/Lovenox 30 mg SQ daily (WT < 150 kg, CrCl > 10-29 mL/min) *Enoxaparin/Lovenox 30 mg SQ BID (WT < 150 kg, CrCl > 30 mL/min) AND/OR *Sequential Compression Device (SCD) 5 or more Highest Order ONE of the following medications: *Heparin 5000 units SQ TID (Preferred with Epidurals) *Enoxaparin/Lovenox 40 mg SQ daily (WT < 150 kg, CrCl > 30 mL/min) *Enoxaparin/Lovenox 30 mg SQ daily (WT < 150 kg, CrCl > 10-29 mL/min) *Enoxaparin/Lovenox 30 mg SQ BID (WT < 150 kg, CrCl > 30 mL/min) AND *Sequential Compression Device (SCD) Assessment and Plan Assessment and Plan Assessment/plan: 1. Infected diabetic foot ulcer Vancomycin and cefepime Blood cultures pending Foot x-ray without osteolytic lesions Podiatry consulted, appreciate recommendations Blood and wound cultures pending Monitor for signs of sepsis 2. Acute on chronic kidney disease Cr 1.97, 1.59 on 02/11/17 IV fluid hydration Avoid nephrotoxic agents Monitor renal function 3. Diabetes mellitus Decrease Levemir to half dosing as patient nothing by mouth after midnight SSI Monitor blood glucose 4. Hypertension Continue home medications 5. Chronic pain Continue home methadone and oxycodone FEN Heart healthy diabetic diet, nothing by mouth after midnight Electrolytes: Monitor and replete when necessary Holding pharmacologic anticoagulation in anticipation of possible operative intervention tomorrow NS at 100 cc/hr while NPO Physician Certification 2 Midnight Certification Type: Admission for Inpatient Services Order for Inpatient Services The services are ordered in accordance with Medicare regulations or non- Medicare payer requirements, as applicable. In the case of services not specified as inpatient-only, they are appropriately provided as inpatient services in accordance with the 2-midnight benchmark. Estimated LOS (days): 2 2 days is the estimated time the patient will need to remain in the hospital, assuming treatment plan goals are met and no additional complications. Post-Hospital Plan: Not yet determined Lexi Cartagena MD Oct 25, 2017 20:17
[2017-10-25 20:23] VITALS: BP 100/60; PULSE 90; RESP 18; TEMP 97.5; O2SAT 96
--- NOTE | 2017-10-25 20:56 | EKG ---
Date Performed: 10/25/2017 Time Performed: 13:45:03 PTAGE: 57 years EKG: Sinus rhythm NORMAL ECG Compared to prior electrocardiogram, Nonspecific T wave changes are less marked PREVIOUS TRACING : 02/08/2017 21.45 DOCTOR: Moreno Mejia Interpretating Date/Time 10/25/2017 20:55:47
[2017-10-25] MEDS ORDERED: INSULIN DETEMIR 100 UNITS/ML VIAL SQ SCH (21:00)
[2017-10-25] MEDS: FUROSEMIDE 40 MG TAB PO SCH (21:17)
[2017-10-25] MEDS: INSULIN ASPART SUPPLEMENTAL SCALE SQ SCH (21:17)
[2017-10-25] MEDS: SODIUM CHLORIDE 0.9% FLUSH 10 ML FLUSH IV FLUSH SCH (21:18)
[2017-10-25 23:18] VITALS: BP 93/53; PULSE 88; RESP 20; TEMP 98.6; O2SAT 95
[2017-10-26] MEDS: SODIUM CHLOR 0.9% 1000 ML INJ 1,000 ML IV SCH ×2 (00:30→08:41)
[2017-10-26] MEDS: MORPHINE SULFATE 2 MG/ML INJ IV PRN ×2 (00:31→04:21)
[2017-10-26 08:00] VITALS: BP 103/55; PULSE 79; RESP 20; TEMP 97.7; O2SAT 98
[2017-10-26] MEDS: INSULIN ASPART SUPPLEMENTAL SCALE SQ SCH (08:00)
[2017-10-26] MEDS: SODIUM CHLORIDE 0.9% FLUSH 10 ML FLUSH IV FLUSH SCH (08:01)
[2017-10-26] MEDS: FUROSEMIDE 40 MG TAB PO SCH (08:37)
[2017-10-26] MEDS ORDERED: HYDROCHLOROTHIAZIDE 25 MG TAB PO SCH (09:00)
[2017-10-26] MEDS ORDERED: LISINOPRIL 20 MG TAB PO SCH (09:00)
[2017-10-26] MEDS ORDERED: NON-FORMULARY DRUG (Lisinopril-Hctz 1 TAB) PO SCH (09:00)
[2017-10-26] MEDS ORDERED: NON-FORMULARY DRUG (Fenofibrate 160 MG) PO SCH (09:00)
[2017-10-26] MEDS ORDERED: CEFEPIME INJ 2,000 MG in SODIUM CHLORIDE 0.9% INJ 100 ML IV SCH (09:00)
[2017-10-26] MEDS ORDERED: FENOFIBRATE 48 MG TAB PO SCH (09:00)
[2017-10-26] MEDS ORDERED: METHADONE HCL 10 MG TAB PO SCH (09:00)
[2017-10-26] MEDS ORDERED: VANCOMYCIN 1,000 MG/NS 250 ML IV SCH ×2 (09:00)
--- NOTE | 2017-10-26 10:31 | HHI.PR ---
Subjective Remarks f/u; cellulitis left foot in no acute distress. no pain to the foot. no fever. Objective Vitals Vital Signs Date Time Temp Pulse Resp B/P (MAP) Pulse Ox O2 Delivery O2 Flow Rate FiO2 10/26/17 08:00 97.7 79 20 103/55 (71) 98 10/25/17 23:18 98.6 88 20 93/53 (66) 95 10/25/17 20:23 97.5 90 18 100/60 (73) 96 10/25/17 16:35 98.8 87 20 122/59 (80) 98 10/25/17 15:22 81 16 118/59 (78) 97 10/25/17 12:20 Room Air 10/25/17 12:20 Room Air 10/25/17 11:38 98.1 94 16 123/67 (85) 96 Room Air I/O 10/25/17 10/25/17 10/25/17 10/26/17 10/26/17 10/26/17 07:00 15:00 23:00 07:00 15:00 23:00 Intake Total 1403 ml Output Total 1050 ml Balance 353 ml Intake Oral 830 ml IV Total 573 ml Output Urine Total 1050 ml # Bowel Movements 0 Result Diagram: 10/25/17 1220 10/25/17 1220 Imaging Last Impressions Chest X-Ray 10/25/17 1218 Signed Impressions: Service Date/Time: Wednesday, October 25, 2017 12:36 - CONCLUSION: Normal examination. Oren Rivas MD Foot X-Ray 10/25/17 0000 Signed Impressions: Service Date/Time: Wednesday, October 25, 2017 12:39 - CONCLUSION: Soft tissue ulcer lateral left foot without underlying bony fracture or ostial lysis to suggest osteomyelitis. Marked spurring of the anterior tibiotalar joint Oren Rvias MD Objective Remarks GENERAL: This is a well-nourished, well-developed patient, in no apparent distress. CARDIOVASCULAR: Regular rate and regular rhythm without murmurs, gallops, or rubs. RESPIRATORY: Clear to auscultation. Breath sounds equal bilaterally. No wheezes , rales, or rhonchi. GASTROINTESTINAL: Abdomen soft, non-tender, nondistended. Normal, active bowel sounds MUSCULOSKELETAL: open wound on the bottom of the left foot with some erythema and swelling of the lateral left foot NEURO: Alert & Oriented x4 to person, place, time, situation. Moves all ext x4 Medications and IVs Inpatient Medications Aztreonam 2000 mg/ Sodium Chloride 100 ml @ 200 mls/hr ONCE STAT IV ; Start 10/25/17 at 13:21; Stop 10/25/17 at 13:50; Status DC Cefepime HCl 2000 mg/Sodium Chloride 100 ml @ 200 mls/hr Q12H IV Last administered on 10/26/17 08:39; Start 10/26/17 at 09:00 Dextrose (D50w (Vial) Inj) 50 ml UNSCH PRN IV PUSH HYPOGLYCEMIA-SEE COMMENTS; Start 10/25/17 at 20:15 Diphenhydramine HCl (Benadryl Inj) 50 mg ONCE ONCE IV PUSH Last administered on 10/25/17 15:14; Start 10/25/17 at 14:15; Stop 10/25/17 at 14:16; Status DC Fenofibrate (Tricor) 48 mg DAILY PO Last administered on 10/26/17 08:37; Start 10/26/17 at 09:00 Furosemide (Lasix) 40 mg BID PO Last administered on 10/26/17 08:37; Start 10/25/17 at 21:00 Glucagon (Glucagon Inj) 1 mg UNSCH PRN OTHER HYPOGLYCEMIA-SEE COMMENTS; Start 10/25/17 at 20:15 Hydrochlorothiazide (Hydrodiuril) 25 mg DAILY PO ; Start 10/26/17 at 09:00 Insulin Aspart (NovoLOG SUPPLEMENTAL SCALE) 1 ACHS SLIDING SCALE SQ Last administered on 10/25/17 21:17; Start 10/25/17 at 21:00 Insulin Detemir (Levemir Inj) 35 units HS SQ Last administered on 10/25/17 21 :17; Start 10/25/17 at 21:00 Ketorolac Tromethamine (Toradol Inj) 30 mg ONCE ONCE IV PUSH Last administered on 10/25/17 15:14; Start 10/25/17 at 14:15; Stop 10/25/17 at 14 :16; Status DC Lisinopril (Prinivil) 20 mg DAILY PO ; Start 10/26/17 at 09:00 Methadone HCl (Dolophine) 70 mg DAILY PO Last administered on 10/26/17 08:38 ; Start 10/26/17 at 09:00 Metronidazole 100 ml @ 100 mls/hr ONCE STAT IV Last administered on 13:44; Start 10/25/17 at 13:21; Stop 10/25/17 at 14:20; Status DC Miscellaneous Information SPECIFIC LAB TO BE DRAWN:VA... ONCE ONCE .XX ; Start 10/27/17 at 20:45; Stop 10/27/17 at 20:46 Morphine Sulfate (Morphine Inj) 2 mg Q3H PRN IV PAIN GREATER THAN 5 Last administered on 10/26/17 04:21; Start 10/25/17 at 16:30 Naloxone HCl (Narcan Inj) 0.4 mg UNSCH PRN IV PUSH SEE LABEL COMMENTS; Start 10/25/17 at 15:15 Non-Formulary Medication 1 tab DAILY PO ; Start 10/26/17 at 09:00; Stop at 09:00; Status DC Oxycodone HCl (Roxicodone) 15 mg Q4H PRN PO BREAKTHROUGH PAIN Last administered on 10/26/17 06:23; Start 10/25/17 at 18:00 Pharmacy Profile Note 0 ml @ 0 mls/hr UNSCH OTHER ; Start 10/25/17 at 15:15 Sodium Chloride 1,000 ml @ 100 mls/hr Q10H IV Last administered on 10/26/17 08:41; Start 10/26/17 at 00:00 Sodium Chloride (NS Flush) 2 ml BID IV FLUSH Last administered on 10/26/17 08 :01; Start 10/25/17 at 21:00 Vancomycin HCl 1000 mg/Sodium Chloride 250 ml @ 250 mls/hr Q18H IV Last administered on 10/26/17 08:41; Start 10/26/17 at 09:00 A/P Assessment and Plan 1. Infected diabetic foot ulcer continue Vancomycin and cefepime Foot x-ray without osteolytic lesions Podiatry consulted. Blood and wound cultures pending Monitor for signs of sepsis 2. Acute on chronic kidney disease Cr 1.97, 1.59 on 02/11/17 IV fluid hydration Avoid nephrotoxic agents Monitor renal function 3. Diabetes mellitus Decrease Levemir to half dosing as patient nothing by mouth . SSI Monitor blood glucose 4. Hypertension Continue home medications 5. Chronic pain Continue home methadone and oxycodone DVT prophylaxis; chemical prophylaxis pending ortho evaluation. Dagoberto Gonzalez MD Oct 26, 2017 10:31
[2017-10-27] MEDS ORDERED: PHARMACY ORDERED LAB ONE (20:45)
== END 2017-10-26 11:55 | disposition left against medical advice (07) | DRG 638 ==
LOC: NEPE 11:36 → NEDA 15:32 → N04B 16:30
PROVIDERS: ADMIT Internal Medicine; ATTEND Internal Medicine
DX: E11.621 Type 2 diabetes mellitus with foot ulcer (principal); Z68.44 Body mass index [BMI] 60.0-69.9, adult; L03.116 Cellulitis of left lower limb; L97.529 Non-pressure chronic ulcer of other part of left foot with unspecified severity; N17.9 Acute kidney failure, unspecified; E11.22 Type 2 diabetes mellitus with diabetic chronic kidney disease; E11.42 Type 2 diabetes mellitus with diabetic polyneuropathy; N18.9 Chronic kidney disease, unspecified; I12.9 Hypertensive chronic kidney disease with stage 1 through stage 4 chronic kidney disease, or unspecified chronic kidney disease; G89.29 Other chronic pain; E78.5 Hyperlipidemia, unspecified; E66.01 Morbid (severe) obesity due to excess calories; J44.9 Chronic obstructive pulmonary disease, unspecified; F17.200 Nicotine dependence, unspecified, uncomplicated; Z79.4 Long term (current) use of insulin; Z79.891 Long term (current) use of opiate analgesic; Z88.0 Allergy status to penicillin
CPT/HCPCS: 71010; 73630; 80053; 82948; 83605; 85025; 85610; 85652; 85730; 86140; 87040; 87070; 87185; 87205; 93005; 96365; J0692; J1200; J1815; J1885; J2270; J3370; J7030; J7050